=== PATIENT | female | born 1970 | race Caucasian/White ===

== ENCOUNTER 2019-08-22 19:27 | Inpatient (IN) | payer SELFPAY ==
--- NOTE | 2019-08-22 20:01 | Event Note ---
ED Screening Note Date of service: 08/22/19 Time: 20:00 ED Screening Note: 49 yo F, hx diabetes, presents to ED w/ painful, swollen knot on her back x 4 days. Reports fever and nausea. This initial assessment/diagnostic orders/clinical plan/treatment(s) is/are subject to change based on patients health status, clinical progression and re- assessment by fellow clinical providers in the ED. Further treatment and workup at subsequent clinical providers discretion. Patient/guardian urged not to elope from the ED as their condition may be serious if not clinically assessed and managed. Initial orders include: CBC, BMP
[2019-08-22 20:51] LABS: Basophils # (Auto) 0.1 K/mm3 (0.0-0.1); Basophils % (Auto) 0.8 % (0.0-1.8); Eosinophils # (Auto) 0.3 K/mm3 (0.0-0.4); Eosinophils % (Auto) 2.9 % (0.0-4.3); Hematocrit 38.9 % (30.3-42.9); Hemoglobin 13.6 gm/dl (10.1-14.3); Lymphocytes # (Auto) 1.7 K/mm3 (1.2-5.4); Lymphocytes % (Auto) 16.6 % (13.4-35.0); Mean Corpuscular HGB Conc 35 % (30-34); Mean Corpuscular Volume 86 fl (79-97); Monocytes # (Auto) 0.9 K/mm3 (0.0-0.8); Monocytes % (Auto) 8.6 % (0.0-7.3); Platelet Count 249 K/mm3 (140-440); Red Blood Count 4.53 M/mm3 (3.65-5.03); Red Cell Distribution Width 13.1 % (13.2-15.2)
[2019-08-22 21:12] LABS: BUN/Creatinine Ratio 23; Blood Urea Nitrogen 14 mg/dL (7-17); Calcium 9.5 mg/dL (8.4-10.2); Hemolysis Index 5
[2019-08-22] MEDS ORDERED: SODIUM CHLORIDE 0.9% 1000 ML 1,000 ML IV ONE (23:38)
[2019-08-22] MEDS ORDERED: CLINDAMYCIN 600 MG/50 mL 600 MG/50 ML BAG IV ONE (23:38)
[2019-08-22] MEDS ORDERED: MORPHINE 4 MG/1 ML INJ IV ONE (23:38)
[2019-08-22] MEDS ORDERED: ONDANSETRON 4 MG/2 ML INJ IV ONE (23:38)
--- NOTE | 2019-08-23 00:02 | Emergency Department Report ---
- General Chief complaint: Skin/Abscess/Foreign Body Stated complaint: LUMP ON BACK WITH PAIN Time Seen by Provider: 08/22/19 23:26 Source: patient Mode of arrival: Ambulatory Limitations: No Limitations - History of Present Illness Initial comments: Patient is a 49-year-old female presents emergency room with complaints of an abscess of the back that began 4-5 days ago. She has associated subjective fever and nausea. She denies any drainage. She denies any vomiting or diarr hea. She denies getting bit by anything. She has a past medical history of diabetes which she reports was controlled by diet and she has never been on medications. She has an allergy to penicillin. She states that she has had abscesses before which were small and went away on their own and has never had to have an I&D. - Related Data Allergies Allergy/AdvReac Type Severity Reaction Status Date / Time No Known Allergies Allergy Verified 08/23/19 02:58 Abscess Boil HPI - HPI Chief Complaint: Skin/Abscess/Foreign Body Stated Complaint: LUMP ON BACK WITH PAIN Time Seen by Provider: 08/22/19 23:26 Allergies/Adverse Reactions: Allergies Allergy/AdvReac Type Severity Reaction Status Date / Time No Known Allergies Allergy Verified 08/23/19 02:58 ED Review of Systems ROS: Stated complaint: LUMP ON BACK WITH PAIN Other details as noted in HPI Comment: All other systems reviewed and negative ED Past Medical Hx - Past Medical History Previous Medical History?: Yes Hx Diabetes: Yes - Surgical History Past Surgical History?: No - Social History Smoking Status: Never Smoker Substance Use Type: None ED Physical Exam - General Limitations: No Limitations General appearance: alert, in no apparent distress - Head Head exam: Present: atraumatic, normocephalic - Eye Eye exam: Present: normal appearance - ENT ENT exam: Present: mucous membranes moist - Respiratory Respiratory exam: Present: normal lung sounds bilaterally. Absent: respiratory distress, wheezes, rales, rhonchi, stridor, chest wall tenderness, accessory muscle use, decreased breath sounds, prolonged expiratory - Cardiovascular Cardiovascular Exam: Present: regular rate, normal rhythm, normal heart sounds. Absent: systolic murmur, diastolic murmur, rubs, gallop - Neurological Exam Neurological exam: Present: alert, oriented X3 - Psychiatric Psychiatric exam: Present: normal affect, normal mood - Skin Skin exam: Present: warm, dry, other (8 cm by 8 cm area of erythema and induration to the middle of the back, no obvious central fluctuance, no necrosis, no blistering) ED Course Vital Signs 08/22/19 08/23/19 19:49 01:51 Temperature 99 F 98.4 F Pulse Rate 104 H 98 H Respiratory 18 18 Rate Blood Pressure 149/77 152/91 [Right] O2 Sat by Pulse 97 98 Oximetry - Consultations Consultation #1: 08/23/19 01:[address] Patterson, general surgery regarding CT results and patients exam, advised to do the initial I&D and will consult on patient and evaluate patient to see if surgical washout needed given the extensive cellulitis Consultation #2: 08/23/19 02:[address] Nieves, hospitalist who will accept and resume care of patient, will admit to hospital, asked to have nursing staff obtain wound culture - I & D Back Type of Procedure: Complex Site: mid back Blade Size: 11 I & D Procedure: betadine prep, sterile drapes applied, sterile dressing applied Progress: Very difficult I&D to perform, skin is very indurated, difficult to inject lidocaine anesthetic, area prepped with Betadine, 5 mL of 1% lidocaine without epinephrine used as anesthetic, betadine prep again, sterile drapes applied, 2 cm incision made with 11 blade, skin is very indurated, difficult to make incision, small amount of purulent drainage expressed with an odor, irrigated with saline, attempted to probe with blunt forceps, small amount of packing placed, patient tolerated well, bleeding controlled ED Medical Decision Making - Lab Data Result diagrams: 08/23/19 03:03 08/23/19 03:03 Lab Results 08/22/19 08/22/19 08/22/19 Range/Units 20:30 20:30 23:31 WBC 10.4 (4.5-11.0) K/mm3 RBC 4.53 (3.65-5.03) M/mm3 Hgb 13.6 (10.1-14.3) gm/dl Hct 38.9 (30.3-42.9) % MCV 86 (79-97) fl MCH 30 (28-32) pg MCHC 35 H (30-34) % RDW 13.1 L (13.2-15.2) % Plt Count 249 (140-440) K/mm3 Lymph % (Auto) 16.6 (13.4-35.0) % [place] % (Auto) 8.6 H (0.0-7.3) % Eos % (Auto) 2.9 (0.0-4.3) % Baso % (Auto) 0.8 (0.0-1.8) % Lymph # 1.7 (1.2-5.4) K/mm3 [place] # 0.9 H (0.0-0.8) K/mm3 Eos # 0.3 (0.0-0.4) K/mm3 Baso # 0.1 (0.0-0.1) K/mm3 Seg Neutrophils % 71.1 H (40.0-70.0) % Seg Neutrophils # 7.4 (1.8-7.7) K/mm3 VBG pH 7.425 H (7.320-7.420) Sodium 131 L (137-145) mmol/L Potassium 4.6 (3.6-5.0) mmol/L Chloride 88.9 L (98-107) mmol/L Carbon Dioxide 30 (22-30) mmol/L Anion Gap 17 mmol/L BUN 14 (7-17) mg/dL Creatinine 0.6 L (0.7-1.2) mg/dL Estimated GFR > 60 ml/min BUN/Creatinine Ratio 23 % Glucose 420 H (65-100) mg/dL Calcium 9.5 (8.4-10.2) mg/dL - Radiology Data Radiology results: report reviewed CT thoracic spine with contrast INDICATION: large 6 cm by 6 cm area of induration/erythema. TECHNIQUE: Axial imaging performed through the thoracic spine with the use of 100 mL Omnipaque 300 intravenous contrast. Sagittal and coronal reconstructed images were also reviewed. All CT scans at this location are performed using CT dose reduction for ALARA by means of automated exposure control. COMPARISON: None FINDINGS: Alignment: Spinal alignment is normal. Bones: There is no acute osseous abnormality. Mild multilevel discogenic DJD is present. Soft tissues: There is skin induration along the posterior midline and there is a multiloculated subcutaneous collection measuring 2.6 cm in maximal transverse dimension and approximately 4 cm in maximal craniocaudal dimension. There is considerable surrounding inflammatory stranding in the subcutaneous tissues, as well. Otherwise no significant incidental soft tissue findings. The visualized lungs are clear. IMPRESSION: Soft tissue findings as outlined above worrisome for subcutaneous abscess formation. No acute abnormality in the spine itself. Signer Name: Eleazar Mead MD Signed: 08/23/2019 12:38 AM Workstation Name: [id number] Transcribed By: CODEY Dictated By: Eleazar Mead MD Electronically Authenticated By: Eleazar Mead MD Signed Date/Time: 08/23/1937 DD/ TD/TT: - Medical Decision Making Patient is a 49-year-old female presents emergency room with complaints of an abscess of the back that began 4-5 days ago. She has associated subjective fever and nausea. She denies any drainage. She denies any vomiting or diarrhea. She denies getting bit by anything. She has a past medical history of diabetes which she reports was controlled by diet and she has never been on medications. She has an allergy to penicillin. She states that she has had abscesses before which were small and went away on their own and has never had to have an I&D. vitals with mild tachycardia which improved upon repeat. labs with mild dehydration and elevated BG at 420. pt given 1L of NS and blood glucose improved to 302. on exam: 8 cm by 8 cm area of erythema and induration to the middle of the back, no obvious central fluctuance, no necrosis, no blistering. CT thoracic spine with IV contrast: Soft tissue findings as outlined above worrisome for subcutaneous abscess formation. No acute abnormality in the spine itself.spoke with Dr. Patterson, general surgery regarding CT results and patients exam, advised to do the initial I&D and will consult on patient and evaluate patient to see if surgical washout needed given the extensive cellulitis. Incision and drainage performed per procedure note it was very difficult to perform secondary to indurated skin, only small amount of foul odor purulent drainage expressed. pt given pain medication and clindamycin. Patient will be admitted to the hospital service due to extensive cellulitis and medical history of uncontrolled diabetes. - Differential Diagnosis cellulitis, abscess, sebaceous cyst, lipoma Critical care attestation.: If time is entered above; I have spent that time in minutes in the direct care of this critically ill patient, excluding procedure time. ED Disposition Clinical Impression: Abscess Cellulitis Qualifiers: Site of cellulitis: trunk Site of cellulitis of trunk: back Qualified Code(s): L03.312 - Cellulitis of back [any part except buttock] Uncontrolled diabetes mellitus Qualifiers: Diabetes mellitus type: type 2 Glycemic state: with hyperglycemia Qualified Code(s): E11.65 - Type 2 diabetes mellitus with hyperglycemia Disposition: 09 OP ADMIT IP TO THIS HOSP Is pt being admited?: Yes Does the pt Need Aspirin: No Condition: Fair Time of Disposition: 02:38
--- NOTE | 2019-08-23 00:43 | Cat Scan Report ---
CT thoracic spine with contrast INDICATION: large 6 cm by 6 cm area of induration/erythema. TECHNIQUE: Axial imaging performed through the thoracic spine with the use of 100 mL Omnipaque 300 i ntravenous contrast. Sagittal and coronal reconstructed images were also reviewed. All CT scans at this location are performed using CT dose reduction for ALARA by means of automated exposure control. COMPARISON: None FINDINGS: Alignment: Spinal alignment is normal. Bones: There is no acute osseous abnormality. Mild multilevel discogenic DJD is present. Soft tissues: There is skin induration along the posterior midline and there is a multiloculated sub cutaneous collection measuring 2.6 cm in maximal transverse dimension and approximately 4 cm in maxim al craniocaudal dimension. There is considerable surrounding inflammatory stranding in the subcutaneo us tissues, as well. Otherwise no significant incidental soft tissue findings. The visualized lungs a re clear. IMPRESSION: Soft tissue findings as outlined above worrisome for subcutaneous abscess formation. No acute abnormality in the spine itself. Signer Name: Eleazar Mead MD Signed: 08/23/2019 12:38 AM Workstation Name: [id number]
[2019-08-23] MEDS ORDERED: LIDOCAINE (1%) 10 MG/1 ML VIAL 20 ML MDV INFILTRATI ONE (01:18)
[2019-08-23] MEDS ORDERED: ONDANSETRON 4 MG/2 ML INJ IV PRN (02:53)
[2019-08-23] MEDS ORDERED: VANCOMYCIN/NS 1 GM/250 ML 1 GM/250 ML BAG IV ONE (02:57)
--- NOTE | 2019-08-23 02:59 | History and Physical Report ---
History of Present Illness History of present illness: 49-year-old woman with no medical problem comes emergency room because she has had a lump on her back that started 1 month ago. Patient stated the lump is been getting bigger, increased pain, fever and chills. Also complained of increased thirst, frequent urination and weight loss of 12 pounds over the last 3 months, dry mouth and generalized weakness. Patient was found to have a absce ss in the thoracic area, I&D was done, she received 1 dose of clindamycin. Patient is being admitted for new onset diabetes, abscess Review of systems Constitutional: no weight loss Ears, eyes, nose, mouth and throat: no nasal congestion, no nasal discharge, no sinus pressure, no vision change, no red eye. Neck: No neck pain or rigidity. Cardiovascular: no chest pain, palpitations Respiratory: No cough, shortness of breath Gastrointestinal: no abdominal pain hematochezia Genitourinary : no frequency , no hematuria Musculoskeletal: no joint swelling or muscle ache Integumentary: no rash, no pruritis Neurological: no parathesias, no numbness, no focal weakness Endocrine: no cold or heat intolerance, no polyuria or polydipsia Hematologic/Lymphatic: no easy bruising, no easy bleeding, no gland swelling Allergic/Immunologic: no urticaria, no angioedema. PAST MEDICAL HISTORY: None PAST SURGICAL HISTORY: None SOCIAL HISTORY: No alcohol, no drugs, tobacco Y HISTORY: Hypertension Medications and Allergies Allergies Allergy/AdvReac Type Severity Reaction Status Date / Time No Known Allergies Allergy Verified 08/23/19 02:58 Active Meds: Active Medications Acetaminophen (Tylenol) 650 mg PO Q4H PRN PRN Reason: Pain MILD(1-3)/Fever >100.5/FUNES Enoxaparin Sodium (Enoxaparin) 30 mg SUB-Q QDAY LATA Sodium Chloride (Nacl 0.9% 1000 Ml) 1,000 mls @ 150 mls/hr IV DIRECT LATA Vancomycin HCl (Vancomycin/Ns 1 Gm/250 Ml) 1 gm in 250 mls @ 167.007 mls/hr IV ONCE ONE; Protocol Stop: 08/23/19 04:26 Piperacillin Sod/Tazobactam Sod (Zosyn/Ns 4.5gm/100ml) 4.5 gm in 100 mls @ 200 mls/hr IV Q8HR LATA; Protocol Morphine Sulfate (Morphine) 2 mg IV Q4H PRN PRN Reason: Pain, Moderate (4-6) Ondansetron HCl (Zofran) 4 mg IV Q8H PRN PRN Reason: Nausea And Vomiting Sodium Chloride (Sodium Chloride Flush Syringe 10 Ml) 10 ml IV BID LATA Sodium Chloride (Sodium Chloride Flush Syringe 10 Ml) 10 ml IV PRN PRN PRN Reason: LINE FLUSH Exam - Physical Exam Narrative exam: Gen. appearance: Patient lying in bed, no apparent distress HEENT: Normocephalic, atraumatic, pupils equally round and reactive to light, eyes are , extraocular movement intact, and no sclericterus,. No JVD or thyromegaly or nodule,neck supple, no carotid bruit ,mucous membranes moist, no exudate or erythema Heart: S1, S2, regular rate and rhythm Lungs: Clear bilaterally, breathing comfortable Abdomen: Positive bowel sounds, non-tender, nondistended, no organomegaly Extremity:no edema cyanosis, clubbing Back: Abscess measuring probably 6 cm, positive erythema, indurated, tender to touch Skin: no rash, dry, warm Neuro: Cranial nerves 2-12 intact, motor and sensory intact - Constitutional Vitals: Temp Pulse Resp BP Pulse Ox 98.4 F 98 H 18 152/91 98 08/23/19 01:51 08/23/19 01:51 08/23/19 01:51 08/23/19 01:51 08/23/19 01:51 Results - Labs CBC & Chem 7: 08/23/19 03:03 08/23/19 03:03 Labs: Abnormal lab results 08/22/19 08/22/19 08/22/19 Range/Units 20:30 20:30 23:31 MCHC 35 H (30-34) % RDW 13.1 L (13.2-15.2) % [place] % (Auto) 8.6 H (0.0-7.3) % [place] # 0.9 H (0.0-0.8) K/mm3 Seg Neutrophils % 71.1 H (40.0-70.0) % VBG pH 7.425 H (7.320-7.420) Sodium 131 L (137-145) mmol/L Chloride 88.9 L (98-107) mmol/L Creatinine 0.6 L (0.7-1.2) mg/dL Glucose 420 H (65-100) mg/dL POC Glucose (70-105) 08/23/19 Range/Units 01:58 MCHC (30-34) % RDW (13.2-15.2) % [place] % (Auto) (0.0-7.3) % [place] # (0.0-0.8) K/mm3 Seg Neutrophils % (40.0-70.0) % VBG pH (7.320-7.420) Sodium (137-145) mmol/L Chloride (98-107) mmol/L Creatinine (0.7-1.2) mg/dL Glucose (65-100) mg/dL POC Glucose 302 H (70-105) Assessment and Plan CT thoracic spine reviewed Assessment Thoracic abscess Start vancomycin, Zosyn obtain blood culture, wound culture Surgery was consulted to see the patient Start IV morphine New onset diabetes Start IV fluid, check fingersticks, start insulin Dietary consult, check hemoglobin A1c DVT prophylax
[2019-08-23] MEDS ORDERED: VANCOMYCIN 1,250 MG in SODIUM CHLORIDE 0.9% 250ML 250 ML IV ONE (03:15)
[2019-08-23] MEDS ORDERED: DEXTROSE 50% IN WATER (25GM) 50 ML SYRINGE IV PRN (03:34)
[2019-08-23 03:38] LABS: Basophils # (Auto) 0.1 K/mm3 (0.0-0.1); Eosinophils # (Auto) 0.3 K/mm3 (0.0-0.4); Eosinophils % (Auto) 3.5 % (0.0-4.3); Hematocrit 39.9 % (30.3-42.9); Hemoglobin 13.9 gm/dl (10.1-14.3); Lymphocytes # (Auto) 1.7 K/mm3 (1.2-5.4); Mean Corpuscular HGB Conc 35 % (30-34); Mean Corpuscular Volume 87 fl (79-97); Monocytes # (Auto) 0.7 K/mm3 (0.0-0.8); Monocytes % (Auto) 7.1 % (0.0-7.3); Platelet Count 252 K/mm3 (140-440); Red Blood Count 4.61 M/mm3 (3.65-5.03); Red Cell Distribution Width 13.2 % (13.2-15.2)
[2019-08-23] MEDS ORDERED: SODIUM CHLORIDE 0.9% 1000 ML 1,000 ML IV SCH (03:45)
[2019-08-23 03:57] LABS: BUN/Creatinine Ratio 22; Blood Urea Nitrogen 11 mg/dL (7-17); Hemolysis Index 6
[2019-08-23] MEDS: SODIUM CHLORIDE 0.9% 1000 ML 1,000 ML IV SCH ×3 (08:15→22:24)
[2019-08-23] MEDS: PIPERACIL/TAZOBACTA 4.5/NS 100 4.5 GM/100 ML VIAL IV SCH ×3 (08:15→22:31)
[2019-08-23] MEDS: INSULIN LISPRO 100 UNIT/ML SUB-Q SCH ×4 (09:04→23:21)
[2019-08-23] MEDS ORDERED: ENOXAPARIN 30 MG/0.3 ML INJ SUB-Q SCH (10:00)
[2019-08-23] MEDS ORDERED: ENOXAPARIN 40 MG/0.4 ML INJ SUB-Q SCH (10:00)
--- NOTE | 2019-08-23 11:19 | Progress Note ---
Hospitalist Physical - Constitutional Vitals: Temp Pulse Resp BP Pulse Ox 98.4 F 98 H 18 152/91 94 08/23/19 01:51 08/23/19 01:51 08/23/19 01:51 08/23/19 01:51 08/23/19 08:37 Results - Labs CBC & Chem 7: 08/23/19 03:03 08/23/19 03:03 Labs: Laboratory Last Values WBC 9.5 K/mm3 (4.5-11.0) 08/23/19 03:03 RBC 4.61 M/mm3 (3.65-5.03) 08/23/19 03:03 Hgb 13.9 gm/dl (10.1-14.3) 08/23/19 03:03 Hct 39.9 % (30.3-42.9) 08/23/19 03:03 MCV 87 fl (79-97) 08/23/19 03:03 MCH 30 pg (28-32) 08/23/19 03:03 MCHC 35 % (30-34) H 08/23/19 03:03 RDW 13.2 % (13.2-15.2) 08/23/19 03:03 Plt Count 252 K/mm3 (140-440) 08/23/19 03:03 Lymph % (Auto) 18.0 % (13.4-35.0) 08/23/19 03:03 [place] % (Auto) 7.1 % (0.0-7.3) 08/23/19 03:03 Eos % (Auto) 3.5 % (0.0-4.3) 08/23/19 03:03 Baso % (Auto) 1.0 % (0.0-1.8) 08/23/19 03:03 Lymph # 1.7 K/mm3 (1.2-5.4) 08/23/19 03:03 [place] # 0.7 K/mm3 (0.0-0.8) 08/23/19 03:03 Eos # 0.3 K/mm3 (0.0-0.4) 08/23/19 03:03 Baso # 0.1 K/mm3 (0.0-0.1) 08/23/19 03:03 Seg Neutrophils % 70.4 % (40.0-70.0) H 08/23/19 03:03 Seg Neutrophils # 6.7 K/mm3 (1.8-7.7) 08/23/19 03:03 VBG pH 7.425 (7.320-7.420) H 08/22/19 23:31 Sodium 132 mmol/L (137-145) L 08/23/19 03:03 Potassium 4.5 mmol/L (3.6-5.0) 08/23/19 03:03 Chloride 90.5 mmol/L (98-107) L 08/23/19 03:03 Carbon Dioxide 29 mmol/L (22-30) 08/23/19 03:03 Anion Gap 17 mmol/L 08/23/19 03:03 BUN 11 mg/dL (7-17) 08/23/19 03:03 Creatinine 0.5 mg/dL (0.7-1.2) L 08/23/19 03:03 Estimated GFR > 60 ml/min 08/23/19 03:03 BUN/Creatinine Ratio 22 % 08/23/19 03:03 Glucose 343 mg/dL (65-100) H 08/23/19 03:03 POC Glucose 318 (70-105) H 08/23/19 09:03 Hemoglobin A1c 11.9 % (4-6) H 08/23/19 03:03 Calcium 9.0 mg/dL (8.4-10.2) 08/23/19 03:03 Active Medications - Current Medications Current Medications: Generic Name Dose Route Start Last Admin Trade Name Freq PRN Reason Stop Dose Admin Acetaminophen 650 mg 08/23/19 02:53 Tylenol PO Q4H PRN Pain MILD(1-3)/Fever >100.5/FUNES Dextrose 50 ml 08/23/19 03:34 D50w (25gm) Syringe IV Q30MIN PRN Hypoglycemia Protocol Enoxaparin Sodium 40 mg 08/23/19 10:00 08/23/19 09:44 Enoxaparin SUB-Q 40 mg QDAY@1000 LATA Administration Sodium Chloride 1,000 mls @ 150 mls/hr 08/23/19 03:00 08/23/19 08:15 Nacl 0.9% 1000 Ml IV 150 mls/hr DIRECT LATA Administration Piperacillin Sod/Tazobactam Sod 4.5 gm in 100 mls @ 200 mls/hr 08/23/19 06:00 08/23/19 08:15 Zosyn/Ns 4.5gm/100ml IV 200 mls/hr Q8HR LATA Administration Protocol Insulin Human Lispro 0 unit 08/23/19 06:00 08/23/19 09:04 Humalog SUB-Q 8 unit Q6HR LATA Administration Protocol Morphine Sulfate 2 mg 08/23/19 02:53 Morphine IV Q4H PRN Pain, Moderate (4-6) Ondansetron HCl 4 mg 08/23/19 02:53 Zofran IV Q8H PRN Nausea And Vomiting Sodium Chloride 10 ml 08/23/19 10:00 08/23/19 09:44 Sodium Chloride Flush Syringe 10 Ml IV 10 ml BID LATA Administration Sodium Chloride 10 ml 08/23/19 02:53 Sodium Chloride Flush Syringe 10 Ml IV PRN PRN LINE FLUSH Nutrition/Malnutrition Assess - Dietary Evaluation Nutrition/Malnutrition Findings: Nutrition Notes Start: 08/23/19 08:40 Freq: Status: Active Protocol: Document 08/23/19 08:40 ROZ (Rec: 08/23/19 10:31 ROZ [id number]) Co-Sign 08/23/19 08:40 LP Nutrition Notes Need for Assessment generated from: MD Order Initial or Follow up Assessment Current Diagnosis Diabetes Current Diet Consistent CHO Labs/Tests BG 343 Hgb A1C 11.9 Pertinent Medications Reviewed Height 5 ft 3 in Weight 86.183 kg [place] Body Weight (kg) 52.27 BMI 33.6 Weight change and time frame 9.8% wt change in 2 years Weight Status Obese Subjective/Other Information MD consult for diet education. Pt stated she's had some wt loss. [employer] WORK[employer] pt ate all 3 meals a day. Pt stated her appetite is getting better. Pt ate 100% of breakfast. Educated pt on a DM diet. Pt had a family member translate. Provided belgian handout Burn Absent Trauma Absent GI Symptoms None Current % PO Good (75-100%) Minimum of two criteria No physical signs of malnutrition #1 Nutrition Diagnosis Food and nutrition-related knowledge deficit Etiology Lack of DM education [employer] WORK[employer] As Evidenced by Signs and Symptoms BG 343, Hgb A1C 11.9, new onset diabetes Is patient on ventilator? No Is Patient Ambulatory and/or Out of Bed Yes REE-([place]-ambulatory/OOB) [ 2889.388 NUTR.[id number]] Kcal/Kg value to use for calculation 17 Approximate Energy Requirements Using 1465 kcal/Kg Calculation Used for Recommendations Kcal/kg Additional Notes Protein: 55-69g (0.8-1g/kg AdjBW 69kg) Fluid: 1 ml/kcal Nutrition Intervention Change Diet Order: Continue current Teaching Recipient Patient,Family Learning Readiness Fair Teaching Methods Discussion,Handout Response to Teaching Reinforcement needed Education Handouts Provided Tajik MNT for DM Barriers to Learning Language RD phone number provided Yes Patient aware of follow up options Yes Goal #1 Follow a consistent CHO diet Goal #2 Meet at least 75% of energy and protein needs via PO intakes Anticipated Discharge Needs: Consistent CHO diet Follow-Up By: 08/27/19 Additional Comments F/U further edu. and stable PO intakes
--- NOTE | 2019-08-23 13:19 | Progress Note ---
Assessment and Plan Assessment and plan: Patient is a 49-year-old woman with no medical problem comes emergency room because she has had a lump on her back that started 1 month ago. Patient stated the lump is been getting bigger, increased pain, fever and chills. Also complained of increased thirst, frequent urination and weight loss of 12 pounds over the last 3 months, dry mouth and generalized weakness. Patient was found to have a abscess in the thoracic area, I&D was done, she received 1 dose of clindamycin. Patient is being admitted for new onset diabetes, abscess * CT Thoracic spine with IV contrast: Soft tissue findings as outlined in report, worrisome for subcutatneous abscess Thoracic abscess Start vancomycin, Zosyn obtain blood culture, wound culture Surgery was consulted Start IV morphine New onset diabetes mellitus type 2 continue IV fluid, check fingersticks, start insulin Dietary consult, checked hemoglobin A1c 11.9, start 70/30 DVT prophylaxis change to sq heparin History Interval history: Patient was seen and examined. Follow-up on current diagnosis Thoracic back abscess. Overnight uneventful as no events directly reported to me. Patient denies any chest pain, shortness breath, nausea/vomiting or severe headaches. Imaging, nursing note, chart, labs and old chart reviewed. Discussed with patient. Sister in law at bedside used as Proof Reader. Hospitalist Physical - Physical exam Narrative exam: Gen: WDWN, NAD, Awake, Alert, Orientated x 3 HEENT: NCAT, EOMI, PERRL, OP Clear Neck: supple, no adenopathy, no thyromegaly, no JVD CVS/Heart: RRR, normal S1S2, pulses present bilaterally Chest/Lungs: CTA B, Symmetrical chest expansion, good air entry bilaterally GI/Abdomen: soft, NTND, good bowel sounds, no guarding or rebound /Bladder: no suprapubic tenderness, no CVA, NO paraspinal tenderness Extermity/Skin: large thoracic abscess with vertical surgical cut draining dark blood, tender also, above that area is another half dollar size cystic like lesion MSK: FROM x 4 Neuro: CN 2-12 grossly intact, no new focal deficits Psych: calm - Constitutional Vitals: Temp Pulse Resp BP Pulse Ox 98.4 F 98 H 18 152/91 94 08/23/19 01:51 08/23/19 01:51 08/23/19 01:51 08/23/19 01:51 08/23/19 08:37 Results - Labs CBC & Chem 7: 08/23/19 03:03 08/23/19 03:03 Labs: Laboratory Last Values WBC 9.5 K/mm3 (4.5-11.0) 08/23/19 03:03 RBC 4.61 M/mm3 (3.65-5.03) 08/23/19 03:03 Hgb 13.9 gm/dl (10.1-14.3) 08/23/19 03:03 Hct 39.9 % (30.3-42.9) 08/23/19 03:03 MCV 87 fl (79-97) 08/23/19 03:03 MCH 30 pg (28-32) 08/23/19 03:03 MCHC 35 % (30-34) H 08/23/19 03:03 RDW 13.2 % (13.2-15.2) 08/23/19 03:03 Plt Count 252 K/mm3 (140-440) 08/23/19 03:03 Lymph % (Auto) 18.0 % (13.4-35.0) 08/23/19 03:03 [place] % (Auto) 7.1 % (0.0-7.3) 08/23/19 03:03 Eos % (Auto) 3.5 % (0.0-4.3) 08/23/19 03:03 Baso % (Auto) 1.0 % (0.0-1.8) 08/23/19 03:03 Lymph # 1.7 K/mm3 (1.2-5.4) 08/23/19 03:03 [place] # 0.7 K/mm3 (0.0-0.8) 08/23/19 03:03 Eos # 0.3 K/mm3 (0.0-0.4) 08/23/19 03:03 Baso # 0.1 K/mm3 (0.0-0.1) 08/23/19 03:03 Seg Neutrophils % 70.4 % (40.0-70.0) H 08/23/19 03:03 Seg Neutrophils # 6.7 K/mm3 (1.8-7.7) 08/23/19 03:03 VBG pH 7.425 (7.320-7.420) H 08/22/19 23:31 Sodium 132 mmol/L (137-145) L 08/23/19 03:03 Potassium 4.5 mmol/L (3.6-5.0) 08/23/19 03:03 Chloride 90.5 mmol/L (98-107) L 08/23/19 03:03 Carbon Dioxide 29 mmol/L (22-30) 08/23/19 03:03 Anion Gap 17 mmol/L 08/23/19 03:03 BUN 11 mg/dL (7-17) 08/23/19 03:03 Creatinine 0.5 mg/dL (0.7-1.2) L 08/23/19 03:03 Estimated GFR > 60 ml/min 08/23/19 03:03 BUN/Creatinine Ratio 22 % 08/23/19 03:03 Glucose 343 mg/dL (65-100) H 08/23/19 03:03 POC Glucose 337 (70-105) H 08/23/19 11:48 Hemoglobin A1c 11.9 % (4-6) H 08/23/19 03:03 Calcium 9.0 mg/dL (8.4-10.2) 08/23/19 03:03 Active Medications - Current Medications Current Medications: Generic Name Dose Route Start Last Admin Trade Name Freq PRN Reason Stop Dose Admin Acetaminophen 650 mg 08/23/19 02:53 Tylenol PO Q4H PRN Pain MILD(1-3)/Fever >100.5/FUNES Dextrose 50 ml 08/23/19 03:34 D50w (25gm) Syringe IV Q30MIN PRN Hypoglycemia Protocol Enoxaparin Sodium 40 mg 08/23/19 10:00 08/23/19 09:44 Enoxaparin SUB-Q 40 mg QDAY@1000 LATA Administration Sodium Chloride 1,000 mls @ 150 mls/hr 08/23/19 03:00 08/23/19 08:15 Nacl 0.9% 1000 Ml IV 150 mls/hr DIRECT LATA Administration Piperacillin Sod/Tazobactam Sod 4.5 gm in 100 mls @ 200 mls/hr 08/23/19 06:00 08/23/19 08:15 Zosyn/Ns 4.5gm/100ml IV 200 mls/hr Q8HR LATA Administration Protocol Insulin Human Lispro 0 unit 08/23/19 06:00 08/23/19 12:34 Humalog SUB-Q 8 unit Q6HR LATA Administration Protocol Morphine Sulfate 2 mg 08/23/19 02:53 Morphine IV Q4H PRN Pain, Moderate (4-6) Ondansetron HCl 4 mg 08/23/19 02:53 Zofran IV Q8H PRN Nausea And Vomiting Sodium Chloride 10 ml 08/23/19 10:00 08/23/19 09:44 Sodium Chloride Flush Syringe 10 Ml IV 10 ml BID LATA Administration Sodium Chloride 10 ml 08/23/19 02:53 Sodium Chloride Flush Syringe 10 Ml IV PRN PRN LINE FLUSH Nutrition/Malnutrition Assess - Dietary Evaluation Nutrition/Malnutrition Findings: Nutrition Notes Start: 08/23/19 08:40 Freq: Status: Active Protocol: Document 08/23/19 08:40 ROZ (Rec: 08/23/19 10:31 ROZ [id number]) Co-Sign 08/23/19 08:40 LP Nutrition Notes Need for Assessment generated from: MD Order Initial or Follow up Assessment Current Diagnosis Diabetes Current Diet Consistent CHO Labs/Tests BG 343 Hgb A1C 11.9 Pertinent Medications Reviewed Height 5 ft 3 in Weight 86.183 kg [place] Body Weight (kg) 52.27 BMI 33.6 Weight change and time frame 9.8% wt change in 2 years Weight Status Obese Subjective/Other Information MD consult for diet education. Pt stated she's had some wt loss. SCANNING COORDINATOR pt ate all 3 meals a day. Pt stated her appetite is getting better. Pt ate 100% of breakfast. Educated pt on a DM diet. Pt had a family member translate. Provided omani handout Burn Absent Trauma Absent GI Symptoms None Current % PO Good (75-100%) Minimum of two criteria No physical signs of malnutrition #1 Nutrition Diagnosis Food and nutrition-related knowledge deficit Etiology Lack of DM education SCANNING COORDINATOR As Evidenced by Signs and Symptoms BG 343, Hgb A1C 11.9, new onset diabetes Is patient on ventilator? No Is Patient Ambulatory and/or Out of Bed Yes REE-([facility] [place]-ambulatory/OOB) [ 3889.748 NUTR.[id number]] Kcal/Kg value to use for calculation 17 Approximate Energy Requirements Using 1465 kcal/Kg Calculation Used for Recommendations Kcal/kg Additional Notes Protein: 55-69g (0.8-1g/kg AdjBW 69kg) Fluid: 1 ml/kcal Nutrition Intervention Change Diet Order: Continue current Teaching Recipient Patient,Family Learning Readiness Fair Teaching Methods Discussion,Handout Response to Teaching Reinforcement needed Education Handouts Provided Salvadorean MNT for DM Barriers to Learning Language RD phone number provided Yes Patient aware of follow up options Yes Goal #1 Follow a consistent CHO diet Goal #2 Meet at least 75% of energy and protein needs via PO intakes Anticipated Discharge Needs: Consistent CHO diet Follow-Up By: 08/27/19 Additional Comments F/U further edu. and stable PO intakes
--- NOTE | 2019-08-23 14:36 | Consultation ---
History of Present Illness Consult date: 08/23/19 Reason for consult: other (back abscess) Requesting physician: DELIA LEAHY Chief complaint: back pain - History of present illness History of present illness: Patient is a 49-year-old female presents emergency room with complaints of an abscess of the back that began 4-5 days ago. She has associated subjective fever and nausea. She denies any drainage. She denies any vomiting or diarrhea. Since the I&D last night, she is feeling much better. Past History Past Medical History: diabetes Past Surgical History: No surgical history Social history: denies: smoking, alcohol abuse Family history: denies: no significant family history Medications and Allergies Allergies Allergy/AdvReac Type Severity Reaction Status Date / Time No Known Allergies Allergy Verified 08/23/19 02:58 Active Meds: Active Medications Acetaminophen (Tylenol) 650 mg PO Q4H PRN PRN Reason: Pain MILD(1-3)/Fever >100.5/FUNES Dextrose (D50w (25gm) Syringe) 50 ml IV Q30MIN PRN; Protocol PRN Reason: Hypoglycemia Heparin Sodium (Porcine) (Heparin) 5,000 unit SUB-Q Q12HR LATA Sodium Chloride (Nacl 0.9% 1000 Ml) 1,000 mls @ 150 mls/hr IV DIRECT LATA Last Admin: 08/23/19 08:15 Dose: 150 mls/hr Documented by: Piperacillin Sod/Tazobactam Sod (Zosyn/Ns 4.5gm/100ml) 4.5 gm in 100 mls @ 200 mls/hr IV Q8HR LATA; Protocol Last Admin: 08/23/19 08:15 Dose: 200 mls/hr Documented by: Insulin Human Isoph/Insulin Regular (Humulin 70/30) 10 unit SUB-Q BIDDIAB LATA Insulin Human Lispro (Humalog) 0 unit SUB-Q Q6HR LATA; Protocol Last Admin: 08/23/19 12:34 Dose: 8 unit Documented by: Morphine Sulfate (Morphine) 2 mg IV Q4H PRN PRN Reason: Pain, Moderate (4-6) Ondansetron HCl (Zofran) 4 mg IV Q8H PRN PRN Reason: Nausea And Vomiting Sodium Chloride (Sodium Chloride Flush Syringe 10 Ml) 10 ml IV BID LATA Last Admin: 02/01/20 09:44 Dose: 10 ml Documented by: Sodium Chloride (Sodium Chloride Flush Syringe 10 Ml) 10 ml IV PRN PRN PRN Reason: LINE FLUSH Review of Systems - Constitutional fever, chills, no chronic pain - Cardiovascular no chest pain - Gastrointestinal no abdominal pain, no nausea, no vomiting - Muskuloskeletal other (upper back pain) - Integumentary redness, boils, darkening of skin Exam Vital Signs Temp Pulse Resp BP Pulse Ox 99 F 104 H 18 149/77 97 08/22/19 19:49 08/22/19 19:49 08/22/19 19:49 08/22/19 19:49 08/22/19 19:49 - General physical appearance Positive: well developed, well nourished, no distress, no pain, other (tunisian speaking female in NAD) - Eyes Positive: normal occular movement - Respiratory Positive: normal expansion, normal respiratory effort - Integumentary other (5cm area of erythema with a vertical incision in the middle. No active drainage. +induration) - Neurologic Neurologic: alert and oriented to time, place and person, motor strength and sensation are grossly intact - Psychiatric Psychiatric: appropriate mood/affect, intact judgment & insight, cooperative Results - Labs 08/23/19 03:03 08/23/19 03:03 Abnormal lab results 08/22/19 08/22/19 08/22/19 Range/Units 20:30 20:30 23:31 MCHC 35 H (30-34) % RDW 13.1 L (13.2-15.2) % [place] % (Auto) 8.6 H (0.0-7.3) % [place] # 0.9 H (0.0-0.8) K/mm3 Seg Neutrophils % 71.1 H (40.0-70.0) % VBG pH 7.425 H (7.320-7.420) Sodium 131 L (137-145) mmol/L Chloride 88.9 L (98-107) mmol/L Creatinine 0.6 L (0.7-1.2) mg/dL Glucose 420 H (65-100) mg/dL POC Glucose (70-105) Hemoglobin A1c (4-6) % 08/23/19 08/23/19 08/23/19 Range/Units 01:58 03:03 03:03 MCHC 35 H (30-34) % RDW (13.2-15.2) % [place] % (Auto) (0.0-7.3) % [place] # (0.0-0.8) K/mm3 Seg Neutrophils % 70.4 H (40.0-70.0) % VBG pH (7.320-7.420) Sodium 132 L (137-145) mmol/L Chloride 90.5 L (98-107) mmol/L Creatinine 0.5 L (0.7-1.2) mg/dL Glucose 343 H (65-100) mg/dL POC Glucose 302 H (70-105) Hemoglobin A1c (4-6) % 08/23/19 08/23/19 08/23/19 Range/Units 03:03 09:03 11:48 MCHC (30-34) % RDW (13.2-15.2) % [place] % (Auto) (0.0-7.3) % [place] # (0.0-0.8) K/mm3 Seg Neutrophils % (40.0-70.0) % VBG pH (7.320-7.420) Sodium (137-145) mmol/L Chloride (98-107) mmol/L Creatinine (0.7-1.2) mg/dL Glucose (65-100) mg/dL POC Glucose 318 H 337 H (70-105) Hemoglobin A1c 11.9 H (4-6) % Diabetes panel 08/22/19 08/23/19 08/23/19 Range/Units 20:30 03:03 03:03 Sodium 131 L 132 L (137-145) mmol/L Potassium 4.6 4.5 (3.6-5.0) mmol/L Chloride 88.9 L 90.5 L (98-107) mmol/L Carbon Dioxide 30 29 (22-30) mmol/L BUN 14 11 (7-17) mg/dL Creatinine 0.6 L 0.5 L (0.7-1.2) mg/dL Glucose 420 H 343 H (65-100) mg/dL Hemoglobin A1c 11.9 H (4-6) % Calcium 9.5 9.0 (8.4-10.2) mg/dL Calcium panel 08/22/19 08/23/19 Range/Units 20:30 03:03 Calcium 9.5 9.0 (8.4-10.2) mg/dL Pituitary panel 08/22/19 08/23/19 Range/Units 20:30 03:03 Sodium 131 L 132 L (137-145) mmol/L Potassium 4.6 4.5 (3.6-5.0) mmol/L Chloride 88.9 L 90.5 L (98-107) mmol/L Carbon Dioxide 30 29 (22-30) mmol/L BUN 14 11 (7-17) mg/dL Creatinine 0.6 L 0.5 L (0.7-1.2) mg/dL Glucose 420 H 343 H (65-100) mg/dL Calcium 9.5 9.0 (8.4-10.2) mg/dL Adrenal panel 08/22/19 08/23/19 Range/Units 20:30 03:03 Sodium 131 L 132 L (137-145) mmol/L Potassium 4.6 4.5 (3.6-5.0) mmol/L Chloride 88.9 L 90.5 L (98-107) mmol/L Carbon Dioxide 30 29 (22-30) mmol/L BUN 14 11 (7-17) mg/dL Creatinine 0.6 L 0.5 L (0.7-1.2) mg/dL Glucose 420 H 343 H (65-100) mg/dL Calcium 9.5 9.0 (8.4-10.2) mg/dL - Imaging CT scan - chest: report reviewed, image reviewed Assessment and Plan - Patient Problems (1) Abscess Current Visit: Yes Status: Acute Plan to address problem: Pt stable. Patient actually had relatively small abscess cavity. Most of the abnormality was cellulitis. There is no active drainage at this time. Patient is clinically better. White count is normal. At this point I would like to continue with antibiotics. Tomorrow, hopefully when more swelling has resolved, I will probe the wound to see if there is any residual material. At that time, I will determine if further procedures are needed. Everything was discussed with patient via phone occ therapist. Please call with questions. Time=30min
[2019-08-23] MEDS: INSULIN NPH/REGULAR 70/30 INJ SUB-Q SCH (17:12)
[2019-08-23] MEDS: MORPHINE 2 MG/1 ML INJ IV PRN (22:29)
[2019-08-24] MEDS: MORPHINE 2 MG/1 ML INJ IV PRN ×4 (04:15→21:52)
[2019-08-24] MEDS: PIPERACIL/TAZOBACTA 4.5/NS 100 4.5 GM/100 ML VIAL IV SCH ×3 (06:00→21:38)
[2019-08-24] MEDS: INSULIN LISPRO 100 UNIT/ML SUB-Q SCH ×3 (06:00→17:48)
[2019-08-24] MEDS: SODIUM CHLORIDE 0.9% 1000 ML 1,000 ML IV SCH ×2 (06:03→14:07)
[2019-08-24] MEDS: INSULIN NPH/REGULAR 70/30 INJ SUB-Q SCH ×2 (08:49→17:50)
[2019-08-24] MEDS ORDERED: LIDOCAINE (1%) 10 MG/1 ML VIAL 20 ML MDV INFILTRATI ONE (11:00)
--- NOTE | 2019-08-24 12:17 | Progress Note ---
Assessment and Plan - Patient Problems (1) Abscess Current Visit: Yes Status: Acute Plan to address problem: Pt stable. Plan to probe the wound today to check for complete clearing vs need for additional opening. Procedure, risks, benefits discussed. Verbal consent obtained. Everything was discussed with patient via family member (official foreign language interpreter line not working) Please call with questions. Time=10min Subjective Date of service: 08/24/19 Patient Reports: Positive: still having pain (throbbing sensation) Objective Vital Signs - 12hr 08/24/19 05:24 Temperature 98.6 F Pulse Rate 91 H Respiratory 20 Rate Blood Pressure 115/58 O2 Sat by Pulse 96 Oximetry - General physical appearance no distress, no pain, other (pleasant. Does not appear ill) - Respiratory normal expansion, normal respiratory effort - Integumentary other (slight improvement in erythema. +induration and tenderness. No drainage.) - Psychiatric oriented to time, oriented to person, oriented to place, speech is normal, memory intact - Labs 08/23/19 03:03 08/23/19 03:03
--- NOTE | 2019-08-24 12:17 | Procedure Note ---
Date of procedure: 08/24/19 Pre-op diagnosis: back skin abscess Post-op diagnosis: same Procedure: wound exploration and I&D Timeout was called. Family was in the room to aid with interpretation as the phone line was not working. Wound was probed with CTA. Small opening was identified in the long vertical incision. With the aid of the CTA, I was able to determine the extent of the cavity. Cavity was in the subcutaneous tissue level. Over the CTA I opened up the cavity further. Moderate amount of pus drained. Cultures were taken. Wound was thoroughly irrigated. Wound was packed with quarter inch packing tape. Dressings were placed. Patient tolerated the procedure well. There were no complications. Findings: moderate amount of purulent material Anesthesia: none Surgeon: ROMINA NORMAN Estimated blood loss: minimal Pathology: list (cultures) Specimen disposition: to lab Condition: stable Disposition: floor
--- NOTE | 2019-08-24 16:39 | Progress Note ---
Assessment and Plan Assessment and plan: Patient is a 49-year-old woman with no medical problem comes emergency room because she has had a lump on her back that started 1 month ago. Patient stated the lump is been getting bigger, increased pain, fever and chills. Also complained of increased thirst, frequent urination and weight loss of 12 pounds over the last 3 months, dry mouth and generalized weakness. Patient was found to have a abscess in the thoracic area, I&D was done, she received 1 dose of clindamycin. Patient is being admitted for new onset diabetes, abscess * CT Thoracic spine with IV contrast: Soft tissue findings as outlined in report, worrisome for subcutatneous abscess Thoracic abscess s/p bedside debribement today,this is second debridement, as she had I-n-D done in ED follow wound cultures Start vancomycin, Zosyn obtain blood culture, wound culture Surgery was consulted Start IV morphine New onset diabetes mellitus type 2 continue IV fluid, check fingersticks, start insulin Dietary consult, checked hemoglobin A1c 11.9, start 70/30 DVT prophylaxis change to sq heparin History Interval history: Patient was seen and examined. Follow-up on current diagnosis Thoracic back abscess. Overnight uneventful as no events directly reported to me. Patient denies any chest pain, shortness breath, nausea/vomiting or severe headaches. Imaging, nursing note, chart, labs and old chart reviewed. Discussed with patient. Sister in law at bedside used as Lever Tender. Hospitalist Physical - Physical exam Narrative exam: Gen: WDWN, NAD, Awake, Alert, Orientated x 3 HEENT: NCAT, EOMI, PERRL, OP Clear Neck: supple, no adenopathy, no thyromegaly, no JVD CVS/Heart: RRR, normal S1S2, pulses present bilaterally Chest/Lungs: CTA B, Symmetrical chest expansion, good air entry bilaterally GI/Abdomen: soft, NTND, good bowel sounds, no guarding or rebound /Bladder: no suprapubic tenderness, no CVA, NO paraspinal tenderness Extermity/Skin: large thoracic abscess with vertical surgical cut draining dark blood, tender also, above that area is another half dollar size cystic like lesion MSK: FROM x 4 Neuro: CN 2-12 grossly intact, no new focal deficits Psych: calm - Constitutional Vitals: Temp Pulse Resp BP Pulse Ox 98.8 F 86 16 127/55 96 08/24/19 11:04 08/24/19 11:04 08/24/19 11:04 08/24/19 11:04 08/24/19 11:04 Results - Labs CBC & Chem 7: 08/23/19 03:03 08/23/19 03:03 Labs: Laboratory Last Values WBC 9.5 K/mm3 (4.5-11.0) 08/23/19 03:03 RBC 4.61 M/mm3 (3.65-5.03) 08/23/19 03:03 Hgb 13.9 gm/dl (10.1-14.3) 08/23/19 03:03 Hct 39.9 % (30.3-42.9) 08/23/19 03:03 MCV 87 fl (79-97) 08/23/19 03:03 MCH 30 pg (28-32) 08/23/19 03:03 MCHC 35 % (30-34) H 08/23/19 03:03 RDW 13.2 % (13.2-15.2) 08/23/19 03:03 Plt Count 252 K/mm3 (140-440) 08/23/19 03:03 Lymph % (Auto) 18.0 % (13.4-35.0) 08/23/19 03:03 [place] % (Auto) 7.1 % (0.0-7.3) 08/23/19 03:03 Eos % (Auto) 3.5 % (0.0-4.3) 08/23/19 03:03 Baso % (Auto) 1.0 % (0.0-1.8) 08/23/19 03:03 Lymph # 1.7 K/mm3 (1.2-5.4) 08/23/19 03:03 [place] # 0.7 K/mm3 (0.0-0.8) 08/23/19 03:03 Eos # 0.3 K/mm3 (0.0-0.4) 08/23/19 03:03 Baso # 0.1 K/mm3 (0.0-0.1) 08/23/19 03:03 Seg Neutrophils % 70.4 % (40.0-70.0) H 08/23/19 03:03 Seg Neutrophils # 6.7 K/mm3 (1.8-7.7) 08/23/19 03:03 VBG pH 7.425 (7.320-7.420) H 08/22/19 23:31 Sodium 132 mmol/L (137-145) L 08/23/19 03:03 Potassium 4.5 mmol/L (3.6-5.0) 08/23/19 03:03 Chloride 90.5 mmol/L (98-107) L 08/23/19 03:03 Carbon Dioxide 29 mmol/L (22-30) 08/23/19 03:03 Anion Gap 17 mmol/L 08/23/19 03:03 BUN 11 mg/dL (7-17) 08/23/19 03:03 Creatinine 0.5 mg/dL (0.7-1.2) L 08/23/19 03:03 Estimated GFR > 60 ml/min 08/23/19 03:03 BUN/Creatinine Ratio 22 % 08/23/19 03:03 Glucose 343 mg/dL (65-100) H 08/23/19 03:03 POC Glucose 337 (70-105) H 08/24/19 12:28 Hemoglobin A1c 11.9 % (4-6) H 08/23/19 03:03 Calcium 9.0 mg/dL (8.4-10.2) 08/23/19 03:03 Active Medications - Current Medications Current Medications: Generic Name Dose Route Start Last Admin Trade Name Freq PRN Reason Stop Dose Admin Acetaminophen 650 mg 08/23/19 02:53 Tylenol PO Q4H PRN Pain MILD(1-3)/Fever >100.5/FUNES Dextrose 50 ml 08/23/19 03:34 D50w (25gm) Syringe IV Q30MIN PRN Hypoglycemia Protocol Heparin Sodium (Porcine) 5,000 unit 08/24/19 22:00 Heparin SUB-Q Q12HR LATA Sodium Chloride 1,000 mls @ 150 mls/hr 08/23/19 03:00 08/24/19 14:07 Nacl 0.9% 1000 Ml IV 150 mls/hr DIRECT LATA Administration Piperacillin Sod/Tazobactam Sod 4.5 gm in 100 mls @ 200 mls/hr 08/23/19 06:00 08/24/19 14:07 Zosyn/Ns 4.5gm/100ml IV 200 mls/hr Q8HR LATA Administration Protocol Insulin Human Isoph/Insulin Regular 10 unit 08/23/19 17:00 08/24/19 08:49 Humulin 70/30 SUB-Q 10 unit BIDDIAB LATA Administration Insulin Human Lispro 0 unit 08/23/19 06:00 08/24/19 12:52 Humalog SUB-Q 8 unit Q6HR LATA Administration Protocol Morphine Sulfate 2 mg 08/23/19 02:53 08/24/19 12:49 Morphine IV 2 mg Q4H PRN Administration Pain, Moderate (4-6) Ondansetron HCl 4 mg 08/23/19 02:53 Zofran IV Q8H PRN Nausea And Vomiting Sodium Chloride 10 ml 08/23/19 10:00 08/24/19 09:21 Sodium Chloride Flush Syringe 10 Ml IV 10 ml BID LATA Administration Sodium Chloride 10 ml 08/23/19 02:53 Sodium Chloride Flush Syringe 10 Ml IV PRN PRN LINE FLUSH Nutrition/Malnutrition Assess - Dietary Evaluation Nutrition/Malnutrition Findings: Nutrition Notes Start: 08/23/19 08:40 Freq: Status: Active Protocol: Document 08/23/19 08:40 ROZ (Rec: 08/23/19 10:31 ROZ [id number]) Co-Sign 08/23/19 08:40 LP Nutrition Notes Need for Assessment generated from: MD Order Initial or Follow up Assessment Current Diagnosis Diabetes Current Diet Consistent CHO Labs/Tests BG 343 Hgb A1C 11.9 Pertinent Medications Reviewed Height 5 ft 3 in Weight 86.183 kg [place] Body Weight (kg) 52.27 BMI 33.6 Weight change and time frame 9.8% wt change in 2 years Weight Status Obese Subjective/Other Information MD consult for diet education. Pt stated she's had some wt loss. CRA OFFICER pt ate all 3 meals a day. Pt stated her appetite is getting better. Pt ate 100% of breakfast. Educated pt on a DM diet. Pt had a family member translate. Provided anguillan handout Burn Absent Trauma Absent GI Symptoms None Current % PO Good (75-100%) Minimum of two criteria No physical signs of malnutrition #1 Nutrition Diagnosis Food and nutrition-related knowledge deficit Etiology Lack of DM education CRA OFFICER As Evidenced by Signs and Symptoms BG 343, Hgb A1C 11.9, new onset diabetes Is patient on ventilator? No Is Patient Ambulatory and/or Out of Bed Yes REE-([facility]-ambulatory/OOB) [ 1879.748 NUTR.MSJOOB] Kcal/Kg value to use for calculation 17 Approximate Energy Requirements Using 1465 kcal/Kg Calculation Used for Recommendations Kcal/kg Additional Notes Protein: 55-69g (0.8-1g/kg AdjBW 69kg) Fluid: 1 ml/kcal Nutrition Intervention Change Diet Order: Continue current Teaching Recipient Patient,Family Learning Readiness Fair Teaching Methods Discussion,Handout Response to Teaching Reinforcement needed Education Handouts Provided Argentine MNT for DM Barriers to Learning Language RD phone number provided Yes Patient aware of follow up options Yes Goal #1 Follow a consistent CHO diet Goal #2 Meet at least 75% of energy and protein needs via PO intakes Anticipated Discharge Needs: Consistent CHO diet Follow-Up By: 08/27/19 Additional Comments F/U further edu. and stable PO intakes
[2019-08-24] MEDS: HEPARIN 5,000 UNIT/1 ML VIAL SUB-Q SCH (21:39)
[2019-08-25] MEDS: INSULIN LISPRO 100 UNIT/ML SUB-Q SCH ×4 (00:24→17:56)
[2019-08-25] MEDS: PIPERACIL/TAZOBACTA 4.5/NS 100 4.5 GM/100 ML VIAL IV SCH ×3 (06:06→22:18)
[2019-08-25] MEDS: INSULIN NPH/REGULAR 70/30 INJ SUB-Q SCH ×2 (08:45→17:54)
[2019-08-25] MEDS: HEPARIN 5,000 UNIT/1 ML VIAL SUB-Q SCH ×2 (09:29→22:18)
--- NOTE | 2019-08-25 12:38 | Progress Note ---
Assessment and Plan - Patient Problems (1) Abscess Current Visit: Yes Status: Acute Plan to address problem: Pt stable. s/p back abscess I&D - POD#1. appears to be doing well. Ok to d/c home from my perspective with daily dressing changes. Rec: 1) d/c home when cleared by Medicine 2) change packing daily 3) may shower and get wound wet. Pat dry after shower and repack. 4) f/u in office in 2 weeks 5) complete 10 course of Abx due to poorly controlled DM Please call with questions. Time=10min Subjective Date of service: 08/25/19 Patient Reports: Positive: no new complaints, other (no issues o/n. Would like something for constipation) Objective Vital Signs - 12hr 08/25/19 08/25/19 05:06 12:00 Temperature 98.8 F 99.4 F Pulse Rate 84 Respiratory 20 18 Rate Blood Pressure 141/70 Blood Pressure 148/73 [Right] - General physical appearance no distress, no pain - Respiratory normal expansion, normal respiratory effort - Integumentary other (packing in place. now with reactive erythema. less tender) - Labs 08/23/19 03:03 08/23/19 03:03
[2019-08-25] MEDS: POLYETHYLENE GLYCOL 3350 17 GM POWDER PO SCH (14:47)
[2019-08-25] MEDS: ACETAMINOPHEN 325 MG TAB PO PRN (15:55)
--- NOTE | 2019-08-25 16:00 | Progress Note ---
Assessment and Plan Assessment and plan: Patient is a 49-year-old woman with no medical problem comes emergency room because she has had a lump on her back that started 1 month ago. Patient stated the lump is been getting bigger, increased pain, fever and chills. Also complained of increased thirst, frequent urination and weight loss of 12 pounds over the last 3 months, dry mouth and generalized weakness. Patient was found to have a abscess in the thoracic area, I&D was done, she received 1 dose of clindamycin. Patient is being admitted for new onset diabetes, abscess * CT Thoracic spine with IV contrast: Soft tissue findings as outlined in report, worrisome for subcutatneous abscess Thoracic abscess s/p bedside debribement today,this is second debridement, as she had I-n-D done in ED follow wound cultures Start vancomycin, Zosyn obtain blood culture, wound culture Surgery was consulted Start IV morphine New onset diabetes mellitus type 2 continue IV fluid, check fingersticks, start insulin Dietary consult, checked hemoglobin A1c 11.9, start 70/30 DVT prophylaxis change to sq heparin Disposition: continue inpatient care, await for final wound care, anticipate discharge tomorrow History Interval history: Patient was seen and examined. Follow-up on current diagnosis Thoracic back abscess. Overnight uneventful as no events directly reported to me. Patient denies any chest pain, shortness breath, nausea/vomiting or severe headaches. Imaging, nursing note, chart, labs and old chart reviewed. Discussed with patient. Sister in law at bedside used as Evidence Specialist. Hospitalist Physical - Physical exam Narrative exam: Gen: WDWN, NAD, Awake, Alert, Orientated x 3 HEENT: NCAT, EOMI, PERRL, OP Clear Neck: supple, no adenopathy, no thyromegaly, no JVD CVS/Heart: RRR, normal S1S2, pulses present bilaterally Chest/Lungs: CTA B, Symmetrical chest expansion, good air entry bilaterally GI/Abdomen: soft, NTND, good bowel sounds, no guarding or rebound /Bladder: no suprapubic tenderness, no CVA, NO paraspinal tenderness Extermity/Skin: large thoracic abscess with vertical surgical cut draining dark blood, tender also, above that area is another half dollar size cystic like lesion MSK: FROM x 4 Neuro: CN 2-12 grossly intact, no new focal deficits Psych: calm - Constitutional Vitals: Temp Pulse Resp BP Pulse Ox 99.4 F 84 18 148/73 93 08/25/19 12:00 08/25/19 12:00 08/25/19 12:00 08/25/19 12:00 08/24/19 22:03 Results - Labs CBC & Chem 7: 08/23/19 03:03 08/23/19 03:03 Labs: Laboratory Last Values WBC 9.5 K/mm3 (4.5-11.0) 08/23/19 03:03 RBC 4.61 M/mm3 (3.65-5.03) 08/23/19 03:03 Hgb 13.9 gm/dl (10.1-14.3) 08/23/19 03:03 Hct 39.9 % (30.3-42.9) 08/23/19 03:03 MCV 87 fl (79-97) 08/23/19 03:03 MCH 30 pg (28-32) 08/23/19 03:03 MCHC 35 % (30-34) H 08/23/19 03:03 RDW 13.2 % (13.2-15.2) 08/23/19 03:03 Plt Count 252 K/mm3 (140-440) 08/23/19 03:03 Lymph % (Auto) 18.0 % (13.4-35.0) 08/23/19 03:03 [place] % (Auto) 7.1 % (0.0-7.3) 08/23/19 03:03 Eos % (Auto) 3.5 % (0.0-4.3) 08/23/19 03:03 Baso % (Auto) 1.0 % (0.0-1.8) 08/23/19 03:03 Lymph # 1.7 K/mm3 (1.2-5.4) 08/23/19 03:03 [place] # 0.7 K/mm3 (0.0-0.8) 08/23/19 03:03 Eos # 0.3 K/mm3 (0.0-0.4) 08/23/19 03:03 Baso # 0.1 K/mm3 (0.0-0.1) 08/23/19 03:03 Seg Neutrophils % 70.4 % (40.0-70.0) H 08/23/19 03:03 Seg Neutrophils # 6.7 K/mm3 (1.8-7.7) 08/23/19 03:03 VBG pH 7.425 (7.320-7.420) H 08/22/19 23:31 Sodium 132 mmol/L (137-145) L 08/23/19 03:03 Potassium 4.5 mmol/L (3.6-5.0) 08/23/19 03:03 Chloride 90.5 mmol/L (98-107) L 08/23/19 03:03 Carbon Dioxide 29 mmol/L (22-30) 08/23/19 03:03 Anion Gap 17 mmol/L 08/23/19 03:03 BUN 11 mg/dL (7-17) 08/23/19 03:03 Creatinine 0.5 mg/dL (0.7-1.2) L 08/23/19 03:03 Estimated GFR > 60 ml/min 08/23/19 03:03 BUN/Creatinine Ratio 22 % 08/23/19 03:03 Glucose 343 mg/dL (65-100) H 08/23/19 03:03 POC Glucose 263 (70-105) H 08/25/19 11:48 Hemoglobin A1c 11.9 % (4-6) H 08/23/19 03:03 Calcium 9.0 mg/dL (8.4-10.2) 08/23/19 03:03 Active Medications - Current Medications Current Medications: Generic Name Dose Route Start Last Admin Trade Name Freq PRN Reason Stop Dose Admin Acetaminophen 650 mg 08/23/19 02:53 08/25/19 15:55 Tylenol PO 650 mg Q4H PRN Administration Pain MILD(1-3)/Fever >100.5/FUNES Bisacodyl 10 mg 08/26/19 13:00 Dulcolax PO 08/26/19 13:01 QDAY ONE Dextrose 50 ml 08/23/19 03:34 D50w (25gm) Syringe IV Q30MIN PRN Hypoglycemia Protocol Heparin Sodium (Porcine) 5,000 unit 08/24/19 22:00 08/25/19 09:29 Heparin SUB-Q 5,000 unit Q12HR LATA Administration Piperacillin Sod/Tazobactam Sod 4.5 gm in 100 mls @ 200 mls/hr 08/23/19 06:00 08/25/19 14:50 Zosyn/Ns 4.5gm/100ml IV 200 mls/hr Q8HR LATA Administration Protocol Insulin Human Isoph/Insulin Regular 10 unit 08/23/19 17:00 08/25/19 08:45 Humulin 70/30 SUB-Q 10 unit BIDDIAB LATA Administration Insulin Human Lispro 0 unit 08/23/19 06:00 08/25/19 12:27 Humalog SUB-Q 6 unit Q6HR LATA Administration Protocol Morphine Sulfate 2 mg 08/23/19 02:53 08/24/19 21:52 Morphine IV 2 mg Q4H PRN Administration Pain, Moderate (4-6) Ondansetron HCl 4 mg 08/23/19 02:53 Zofran IV Q8H PRN Nausea And Vomiting Polyethylene Glycol 17 gm 08/25/19 13:00 08/25/19 14:47 Miralax 3350 PO 17 gm QDAY LATA Administration Sodium Chloride 10 ml 08/23/19 10:00 08/25/19 09:42 Sodium Chloride Flush Syringe 10 Ml IV Not Given BID LATA Sodium Chloride 10 ml 08/23/19 02:53 Sodium Chloride Flush Syringe 10 Ml IV PRN PRN LINE FLUSH Nutrition/Malnutrition Assess - Dietary Evaluation Nutrition/Malnutrition Findings: Nutrition Notes Start: 08/23/19 08:40 Freq: Status: Active Protocol: Document 08/23/19 08:40 ROZ (Rec: 08/23/19 10:31 ROZ [id number]) Co-Sign 08/23/19 08:40 LP Nutrition Notes Need for Assessment generated from: MD Order Initial or Follow up Assessment Current Diagnosis Diabetes Current Diet Consistent CHO Labs/Tests BG 343 Hgb A1C 11.9 Pertinent Medications Reviewed Height 5 ft 3 in Weight 86.183 kg [place] Body Weight (kg) 52.27 BMI 33.6 Weight change and time frame 9.8% wt change in 2 years Weight Status Obese Subjective/Other Information MD consult for diet education. Pt stated she's had some wt loss. 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 Pt stated her appetite is getting better. Pt ate 100% of breakfast. Educated pt on a DM diet. Pt had a family member translate. 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 No Is Patient Ambulatory and/or Out of Bed Yes REE-([place]. Jeor-ambulatory/OOB) [ 1879.748 NUTR.MSJOOB] Kcal/Kg value to use for calculation 17 Approximate Energy Requirements Using 1465 kcal/Kg Calculation Used for Recommendations Kcal/kg Additional Notes Protein: 55-69g (0.8-1g/kg AdjBW 69kg) Fluid: 1 ml/kcal Nutrition Intervention Change Diet Order: Continue current Teaching Recipient Patient,Family Learning Readiness Fair Teaching Methods Discussion,Handout Response to Teaching Reinforcement needed Education Handouts Provided German MNT for DM Barriers to Learning Language RD phone number provided Yes Patient aware of follow up options Yes Goal #1 Follow a consistent CHO diet Goal #2 Meet at least 75% of energy and protein needs via PO intakes Anticipated Discharge Needs: Consistent CHO diet Follow-Up By: 08/27/19 Additional Comments F/U further edu. and stable PO intakes
[2019-08-26] MEDS: INSULIN LISPRO 100 UNIT/ML SUB-Q SCH ×3 (00:05→12:35)
[2019-08-26] MEDS: PIPERACIL/TAZOBACTA 4.5/NS 100 4.5 GM/100 ML VIAL IV SCH (06:16)
[2019-08-26 06:56] LABS: Hematocrit 38.5 % (30.3-42.9); Hemoglobin 13.2 gm/dl (10.1-14.3); Mean Corpuscular HGB Conc 34 % (30-34); Mean Corpuscular Volume 87 fl (79-97); Platelet Count 364 K/mm3 (140-440); Red Blood Count 4.44 M/mm3 (3.65-5.03); Red Cell Distribution Width 13.4 % (13.2-15.2)
[2019-08-26 07:30] LABS: BUN/Creatinine Ratio 12; Blood Urea Nitrogen 6 mg/dL (7-17); Hemolysis Index 5
--- NOTE | 2019-08-26 07:41 | Discharge Summary ---
Providers - Providers Date of Admission: 08/23/19 04:19 Attending physician: REJI GOMEZ MD 08/23/19 02:56 Consult to Physician [CONS] Stat Comment: Consulting Provider: ROMINA NORMAN Physician Instructions: Reason For Exam: abscess, cellulitis 08/23/19 03:35 Consult to Dietitian/Nutrition [CONS] Routine Physician Instructions: Reason For Exam: Reason for Consult: Patient on ventilator Reason for Consult: Diet education 08/23/19 16:28 Consult to Wound/ET Nurse [CONS] Routine Reason For Exam: wound eval 08/24/19 07:09 Consult to Wound/ET Nurse [CONS] Routine Reason For Exam: wound eval [facility] Condition: Fair Hospital course: 49-year-old woman with no medical problem comes emergency room because she has had a lump on her back that started 1 month ago. Patient stated the lump is been getting bigger, increased pain, fever and chills. Also complained of increased thirst, frequent urination and weight loss of 12 pounds over the last 3 months, dry mouth and generalized weakness. Patient was found to have a abscess in the thoracic area, I&D was done, she received 1 dose of clindamycin. Patient is being admitted for new onset diabetes, abscess * CT Thoracic spine with IV contrast: Soft tissue findings as outlined in report, worrisome for subcutatneous abscess Thoracic abscess Status post bedside debridements, patient was discharged on oral antibiotics and to follow-up in general surgery and wound care clinic. New onset diabetes mellitus type 2 Patient was started on insulins. DVT prophylaxis change to sq heparin Preventative health counseling performed for 17 minutes Disposition: - TO HOME OR SELFCARE Time spent for discharge: 33 minutes Core Measure Documentation - Palliative Care Palliative Care/ Comfort Measures: Not Applicable - Core Measures Any of the following diagnoses?: none Exam - Constitutional Vitals: Temp Pulse Resp BP Pulse Ox 98.9 F 81 16 139/64 96 08/26/19 04:32 08/25/19 16:13 08/26/19 04:32 08/26/19 04:32 08/25/19 16:13 General appearance: Present: no acute distress, well-nourished - EENT Eyes: Present: PERRL ENT: hearing intact, clear oral mucosa - Neck Neck: Present: supple, normal ROM - Respiratory Respiratory effort: normal Respiratory: bilateral: CTA - Cardiovascular Heart Sounds: Present: S1 & S2. Absent: rub, click - Extremities Extremities: pulses symmetrical, No edema Peripheral Pulses: within normal limits - Abdominal General gastrointestinal: Present: soft, non-tender, non-distended, normal bowel sounds Female genitourinary: Present: normal - Integumentary Integumentary: Present: clear, warm, dry (Surgical dressing not removed on thorax) - Musculoskeletal Musculoskeletal: gait normal, strength equal bilaterally - Psychiatric Psychiatric: appropriate mood/affect, intact judgment & insight - Neurologic Neurologic: CNII-XII intact, moves all extremities Plan [facility] [Primary Care Provider[facility] - 3-5 Days Forms: Accompanied Note Prescriptions: Amoxicillin/Potassium Clav [Augmentin 875-125 Tablet] 1 each PO BID #14 tablet Polyethylene Glycol 3350 [Miralax 3350] 17 gm PO QDAY #30 powd.pack Insulin NPH/Regular [NovoLIN 70/30] 15 unit SUB-Q BIDDIAB #1 vial
[2019-08-26] MEDS: POLYETHYLENE GLYCOL 3350 17 GM POWDER PO SCH (09:12)
[2019-08-26] MEDS: ACETAMINOPHEN 325 MG TAB PO PRN (09:56)
[2019-08-26] MEDS: HEPARIN 5,000 UNIT/1 ML VIAL SUB-Q SCH (09:57)
[2019-08-26] MEDS: INSULIN NPH/REGULAR 70/30 INJ SUB-Q SCH (10:01)
[2019-08-26 12:22] VITALS: BP 141/78
== END 2019-08-26 14:10 | disposition home or self-care (01) | DRG 572 ==
LOC: ED 19:27 → 3A 08-23 04:19
PROVIDERS: ADMIT Internal Medicine; ATTEND Internal Medicine
PROC: 0J970ZZ Drainage of Back Subcutaneous Tissue and Fascia, Open Approach (ICD-10-PCS; principal; 2019-08-24)
PROC: 0JB70ZZ Excision of Back Subcutaneous Tissue and Fascia, Open Approach (ICD-10-PCS; 2019-08-25)
DX: L03.312 Cellulitis of back [any part except buttock and flank] (principal); L02.212 Cutaneous abscess of back [any part, except buttock and flank]; Z88.1 Allergy status to other antibiotic agents; E11.65 Type 2 diabetes mellitus with hyperglycemia; Z82.49 Family history of ischemic heart disease and other diseases of the circulatory system
CPT/HCPCS: 36415; 72129; 80048; 82805; 82962; 83036; 85025; 85027; 87040; 87116; G0378; J1644; J1650; J1815; J2270; J2405; J2543; J3370; J7030; J7050; Q9967

== ENCOUNTER 2019-12-10 09:34 | Inpatient (IN) | payer SELFPAY ==
[2019-12-10] MEDS ORDERED: flumazeniL 0.5 MG/5 ML INJ IV ONE (09:42)
[2019-12-10] MEDS ORDERED: SUCCINYLCHOLINE CHLORIDE 200 MG/10 ML INJ MDV ONE (09:43)
[2019-12-10] MEDS ORDERED: ETOMIDATE 20 MG/10 ML INJ IV ONE (09:43)
[2019-12-10] MEDS ORDERED: SODIUM CHLORIDE 0.9% 1000 ML 1,000 ML ONE (09:48)
[2019-12-10] MEDS ORDERED: MIDAZOLAM 100 MG in SODIUM CHLORIDE 0.9% 80 ML IV ONE (10:00)
[2019-12-10] MEDS ORDERED: MIDAZOLAM 2 MG/2 ML INJ IV PRN (10:00)
[2019-12-10] MEDS ORDERED: LORazepam 2 MG/ML VIAL ONE (10:04)
[2019-12-10] MEDS ORDERED: LORazepam 2 MG/ML VIAL IV ONE (10:05)
--- NOTE | 2019-12-10 10:12 | Emergency Department Report ---
HPI - General Chief Complaint: Weakness PUI?: Yes Time Seen by Provider: 12/10/19 10:03 - [facility] HPI: Room 7 The patient is a 49-year-old female present with a chief complaint of weakness. Per the patient's friend the patient has been complaining of weakness and has been "sick" since yesterday. The patient was brought in to the ED by the friend where she was found to be hypoxic to 50% on room air in triage. Patient was immediately brought back to the exam room where she was found to have decreased level of consciousness. However with a sternal rub the patient would open her eyes when asked if anything is bothering her she replied no. The patient continued to be hypoxic between 40 and 50% on room air subsequently the decision to intubate using RSI was made ED Past Medical Hx - Past Medical History Previous Medical History?: Yes Hx Hypertension: Yes Hx Diabetes: Yes - Surgical History Past Surgical History?: No - Family History Family history: no significant - Social History Smoking Status: Unknown if ever smoked Substance Use Type: None - Medications Home Medications: Home Medications Medication Instructions Recorded Confirmed Last Taken Type Amoxicillin/Potassium Clav 1 each PO BID #14 tablet 08/26/19 Unknown Rx [Augmentin 875-125 Tablet] Insulin NPH/Regular [NovoLIN 70/30] 15 unit SUB-Q BIDDIAB #1 vial 08/26/19 Unknown Rx polyethylene glycoL 3350 [Miralax 17 gm PO QDAY #30 powd.pack 08/26/19 Unknown Rx 3350] ED Review of Systems ROS: Stated complaint: WEAKNESS Other details as noted in HPI Comment: Unobtainable due to pts medical conditions Physical Exam - Physical Exam Vital Signs: Vital Signs 12/10/19 09:44 Pulse Rate 138 H Respiratory 26 H Rate Blood Pressure 150/77 [Right] O2 Sat by Pulse 56 L Oximetry Physical Exam: GENERAL: The patient is well-developed well-nourished female lying on stretcher exhibiting tachypnea and decreased level of consciousness. [] HEENT: Normocephalic. Atraumatic. Patient has moist mucous membranes. NECK: Trachea midline CHEST/LUNGS: Tachypnea, accessory muscle use. No wheezing auscultated HEART/CARDIOVASCULAR: Regular. There is tachycardia. There is no gallop rub or murmur. ABDOMEN: Abdomen is soft, nontender. Patient has normal bowel sounds. There is no abdominal distention. SKIN: There is no rash. There is no edema. There is no diaphoresis. NEURO: The patient is lethargic. Patient opens eyes to sternal rub MUSCULOSKELETAL: There is no evidence of acute injury. ED Course Vital Signs 12/10/19 09:44 Pulse Rate 138 H Respiratory 26 H Rate Blood Pressure 150/77 [Right] O2 Sat by Pulse 56 L Oximetry - Central Line Placement Right Femoral Consent Obtained: emergent situation Time Out Performed: No Patient Placed on Monitor/Pulse Ox: Yes MD Prep: mask, gown, gloves Central Line Prep: Chlorhexidine scrub Local Anesthesia Used: Lidocaine 1% Amount of Anesthesia Used (mls): 5 Ultrasound Used for Placement: No Central Line Lumen Inserted: triple Bloods Obtained for Lab: No Central Line Position: good blood return, all ports aspirated, flus, other (Line secured with adhesive) Dressing Applied: Tegaderm Patient Tolerated Procedure: no complications Complications: none - Intubation Time Out Performed: No Sedative: Etomidate Mg Given: 20 Paralytic: Succinylcholine Mg Given: 100 Laryngoscope: fiberoptic video scope Size: 3 ET Tube Size: 7 Tube Secured Depth (cm): 21 Tube Secured Location: lips Tube Placement Confirmation: visualized tube passing t, equal breath sounds bilat, no breath sounds over epi, confirmation by capnometr Patient Tolerated Procedure: no complications Intubation Complications: none ED Medical Decision Making - Lab Data Result diagrams: 12/10/19 Unknown 12/10/19 09:45 - EKG Data -: EKG Interpreted by Me EKG shows normal: sinus rhythm Rate: tachycardia (138 bpm) - EKG Data When compared to previous EKG there are: previous EKG unavailable Interpretation: nonspecific ST-T wave raciel - Radiology Data Radiology results: report reviewed (Chest x-ray), image reviewed (Chest x-ray) interpreted by me: Chest [id number] lung consolidation [facility] [address] [place] [address] XRay Report Signed Patient: SONIA MARR MR# : [id number] : 1970 Acct:[id number] Age/Sex: 49 / F ADM Date: 12/10/19 Loc: ED Attending Dr: Ordering Physician: IBRAHIMA BATES MD Date of Service: 12/10/19 Procedure(s): XR chest 1V ap Accession Number(s): [id number] cc: IBRAHIMA BATES MD Fluoro Time In Minutes: CHEST 1 VIEW INDICATION / CLINICAL INFORMATION: Hypoxia, respiratory failure. COMPARISON: None available. FINDINGS: SUPPORT DEVICES: NG tube is in place as well as endotracheal tube. HEART / MEDIASTINUM: Heart size is minimally enlarged. LUNGS / PLEURA: There is extensive bilateral lung consolidation either pneumonia or edema. Small effusions may be present as well. No pneumothorax. ADDITIONAL FINDINGS: No significant additional findings. IMPRESSION: 1 Extensive lung consolidation with tube placements. Signer Name: Dorian Carlos MD Signed: 12/10/2019 10:40 AM Workstation Name: [id number] Transcribed By: CHERIE Dictated By: Dorian Carlos MD Electronically Authenticated By: Dorian Carlos MD Signed Date/Time: 12/10/19 1040 DD/ 1038 TD/TT: - Differential Diagnosis Acute respiratory failure, pneumonia, Covid 19, symptomatic anemia, Critical Care Time: Yes Critical care time in (mins) excluding proc time.: 30 Critical care attestation.: If time is entered above; I have spent that time in minutes in the direct care of this critically ill patient, excluding procedure time. ED Disposition Clinical Impression: Respiratory failure, Consolidation of left lower lobe of lung, Consolidation of right lower lobe of lung Disposition: OP ADMIT IP TO THIS HOSP Is pt being admited?: Yes Does the pt Need Aspirin: No Condition: Serious Referrals: PRIMARY CAREMD [Primary Care Provider] - 3-5 Days Time of Disposition: 12:43 (Hospitalist paged)
[2019-12-10 10:38] LABS: Partial Thromboplastin Time 21.3 Sec. (24.2-36.6)
[2019-12-10 10:41] LABS: Albumin 3.5 g/dL (3.9-5); Calcium 9.3 mg/dL (8.4-10.2)
--- NOTE | 2019-12-10 10:44 | XRay Report ---
CHEST 1 VIEW INDICATION / CLINICAL INFORMATION: Hypoxia, respiratory failure. COMPARISON: None available. FINDINGS: SUPPORT DEVICES: NG tube is in place as well as endotracheal tube. HEART / MEDIASTINUM: Heart size is minimally enlarged. LUNGS / PLEURA: There is extensive bilateral lung consolidation either pneumonia or edema. Small effu sions may be present as well. No pneumothorax. ADDITIONAL FINDINGS: No significant additional findings. IMPRESSION: 1 Extensive lung consolidation with tube placements. Signer Name: Dorian Carlos MD Signed: 12/10/2019 10:40 AM Workstation Name: [id number]
[2019-12-10 10:52] LABS: Chol/HDL Ratio 4.2 %
[2019-12-10] MEDS: NORepinephrine/NS 4 MG-250 ML 4 MG/250 ML BAG IV SCH ×2 (10:55→23:06)
[2019-12-10] MEDS ORDERED: NORepinephrine/NS 4 MG-250 ML 4 MG/250 ML BAG IV ONE ×2 (10:56→20:24)
[2019-12-10] MEDS ORDERED: cefTRIAXone/NS 2 GM/100 ML 2 GM/100 ML BAG IV ONE (11:00)
[2019-12-10 11:08] LABS: C-Reactive Protein 30.3 mg/dL (0.00-1.30)
[2019-12-10 11:14] LABS: ABG Base Excess -7.2 mmol/L (-2.0-3.0); ABG HCO3 17.3 mmol/L (20.0-26.0); ABG Methemoglobin 0.6 % (0.0-1.5); ABG PCO2 31.9 mm Hg; ABG PH 7.352 pH Units (7.350-7.450); ABG PO2 62.6 mm Hg (80.0-90.0)
[2019-12-10 11:16] LABS: Bilirubin,Urine NEG (Negative); Blood,Urine NEG (Negative); Color,Urine Yellow (Yellow); RBC,Urine < 1.0 /HPF (0.0-6.0); Urobilinogen,Urine < 2.0 mg/dL (<2.0); WBC,Urine < 1.0 /HPF (0.0-6.0)
[2019-12-10] MEDS ORDERED: AZITHROMYCIN 500 MG in SODIUM CHLORIDE 0.9% 250ML 250 ML IV ONE (11:30)
[2019-12-10 11:51] LABS: Hematocrit TNR % (30.3-42.9); Hemoglobin TNR gm/dl (10.1-14.3); Mean Corpuscular HGB Conc TNR % (30-34); Mean Corpuscular Volume TNR fl (79-97); Red Blood Count TNR M/mm3 (3.65-5.03)
[2019-12-10 11:52] LABS: Basophils # (Auto) TNR K/mm3 (0.0-0.1); Basophils % (Auto) TNR % (0.0-1.8); Eosinophils # (Auto) TNR K/mm3 (0.0-0.4); Eosinophils % (Auto) TNR % (0.0-4.3); Lymphocytes # (Auto) TNR K/mm3 (1.2-5.4); Lymphocytes % (Auto) TNR % (13.4-35.0); Mean Platelet Volume TNR fl (6-12); Monocytes # (Auto) TNR K/mm3 (0.0-0.8); Monocytes % (Auto) TNR % (0.0-7.3); Platelet Count TNR K/mm3 (140-440); Red Cell Distribution Width TNR % (13.2-15.2)
[2019-12-10] MEDS ORDERED: INSULIN REGULAR, HUMAN 100 UNITS/1 ML IV ONE (11:53)
[2019-12-10] MEDS ORDERED: FUROSEMIDE 40 MG/4 ML INJ IV ONE (11:57)
[2019-12-10 12:24] LABS: Basophils % (Auto) 0.1 % (0.0-1.8); Hematocrit 38.2 % (30.3-42.9); Hemoglobin 13.2 gm/dl (10.1-14.3); Lymphocytes # (Auto) 0.8 K/mm3 (1.2-5.4); Lymphocytes % (Auto) 8.1 % (13.4-35.0); Mean Corpuscular HGB Conc 35 % (30-34); Mean Corpuscular Volume 87 fl (79-97); Monocytes # (Auto) 0.3 K/mm3 (0.0-0.8); Monocytes % (Auto) 2.8 % (0.0-7.3); Platelet Count 315 K/mm3 (140-440); Red Cell Distribution Width 13.2 % (13.2-15.2)
[2019-12-10] MEDS ORDERED: ACETAMINOPHEN 650 MG RECT SUPP PR ONE ×2 (13:28→13:50)
[2019-12-10] MEDS ORDERED: ACETAMINOPHEN 325 MG RECT SUPP PR ONE (13:28)
[2019-12-10] MEDS ORDERED: ACETAMINOPHEN 650 MG RECT SUPP PR PRN (13:50)
[2019-12-10] MEDS ORDERED: MINERAL OIL/PETROLATUM, WHITE OPHTH OINT 3.5 GM OU PRN (13:55)
[2019-12-10] MEDS ORDERED: LIP THERAPY VASELINE TP PRN (13:55)
--- NOTE | 2019-12-10 14:30 | History and Physical Report ---
History of Present Illness Date of examination: 12/10/19 Date of admission: 12/10/19 12:46 Chief complaint: SOB History of present illness: The patient is a 49-year-old female with h/o HTN, DMtype 2 presented to ER today by her friend with a chief complaint of weakness. Per the patient's friend the patient has been complaining of weakness and has been feeling "sick" since yesterday. In the ED she was found to be hypoxic with O2 sat to 50% on room air in triage, was immediately brought back to the exam room where she was found to have decreased level of consciousness. The patient subsequently the intubated in the ER. CXR showed b/l PNA with consolidation, BG was 643, lactic acid 9.6, Cr 1.0 and bicarbonate was 14. Patient was given NS bolus, placed on insulin drip, started on levophed and admitted to ICU for further evaluation and Mx. No family member was present at the time of my encounter. Past Medical Hx - Past Medical History Previous Medical History?: Yes Hx Hypertension: Yes Hx Diabetes: Yes - Surgical History Past Surgical History?: No - Family History Family history: HTN - Social History Smoking Status: Unknown if ever smoked Substance Use Type: None Medications and Allergies Allergies Allergy/AdvReac Type Severity Reaction Status Date / Time No Known Allergies Allergy Verified 08/23/19 02:58 Home Medications Medication Instructions Recorded Confirmed Last Taken Type Amoxicillin/Potassium Clav 1 each PO BID #14 tablet 08/26/19 Unknown Rx [Augmentin 875-125 Tablet] Insulin NPH/Regular [NovoLIN 70/30] 15 unit SUB-Q BIDDIAB #1 vial 08/26/19 Unknown Rx polyethylene glycoL 3350 [Miralax 17 gm PO QDAY #30 powd.pack 08/26/19 Unknown Rx 3350] Active Meds: Active Medications Hydrophilic Ointment (Vaseline Lip Therapy) 1 applic TP Q2HR PRN PRN Reason: Dry Lips Midazolam HCl 100 mg/ Sodium (Chloride) 100 mls @ 2 mls/hr IV TITR ONE; P rotocol Stop: 12/12/19 11:59 Last Titration: 12/10/19 11:15 Dose: 2 mg/hr, 2 mls/hr Documented by: Norepinephrine (Levophed Drip 4 Mg/Ns 250 Ml) 4 mg in 250 mls @ 7.5 mls/hr IV TITR LATA; Protocol Last Admin: 12/10/19 10:55 Dose: 2 mcg/min, 7.5 mls/hr Documented by: Propofol (Diprivan 10 Mg/Ml) 1,000 mg in 100 mls @ 2.19 mls/hr IV TITR LATA; Protocol Last Titration: 12/10/19 14:05 Dose: 10 mcg/kg/min, 4.38 mls/hr Documented by: Midazolam HCl (Versed) 2 mg IV Q10MIN PRN PRN Reason: Sedation Multi-Ingred Cream/Lotion/Oil/Oint (Artificial Tears Ophth Oint) 1 applic OU Q4HR PRN PRN Reason: Dry Eye(s) Review of Systems ROS unobtainable: due to endotracheal tube, due to mental status Exam - Constitutional Vitals: Temp Pulse Resp BP Pulse Ox 130 H 35 H 125/67 88 12/10/19 13:45 12/10/19 13:45 12/10/19 13:45 12/10/19 13:45 General appearance: Present: well-nourished, other (intubated and sedated) - EENT Eyes: Absent: scleral icterus, conjunctival injection ENT: other (dry mucosa, intubated) - Neck Neck: Absent: rigidity, enlarged thyroid, cervical LAD - Respiratory Respiratory: bilateral: rales (on mechanical ventilation) - Cardiovascular Heart Sounds: Present: S1 & S2. Absent: rub, click - Extremities Extremities: pulses symmetrical, No edema Peripheral Pulses: within normal limits - Abdominal General gastrointestinal: Present: soft, non-tender, non-distended, normal bowel sounds - Integumentary Integumentary: Present: clear, warm. Absent: rash - Musculoskeletal Musculoskeletal: other (no joint effusion) - Psychiatric Psychiatric: no appropriate mood/affect, no intact judgment & insight - Neurologic Neurologic: other (patient unresponsive) HEART Score - HEART Score Troponin: Troponin T 0.047 ng/mL (0.00-0.029) H 12/10/19 09:45 Results - Labs CBC & Chem 7: 12/10/19 Unknown 12/11/19 07:38 Labs: Abnormal lab results 12/10/19 12/10/19 12/10/19 Range/Units 09:45 09:45 09:45 MCHC (30-34) % Lymph % (Auto) (13.4-35.0) % Lymph # (1.2-5.4) K/mm3 Seg Neutrophils % (40.0-70.0) % Seg Neutrophils # (1.8-7.7) K/mm3 APTT 21.3 L (24.2-36.6) Sec. D-Dimer 1063.15 H (0-234) ng/mlDDU ABG pO2 (80.0-90.0) mm Hg ABG HCO3 (20.0-26.0) mmol/L ABG O2 Saturation (95.0-99.0) % ABG Base Excess (-2.0-3.0) mmol/L Oxyhemoglobin (95.0-99.0) % Chloride 95.1 L (98-107) mmol/L Carbon Dioxide 14 L (22-30) mmol/L BUN 26 H (7-17) mg/dL Glucose 643 H* (65-100) mg/dL Lactic Acid 9.60 H* (0.7-2.0) mmol/L Ferritin (13.0-400.0) ng/mL AST 75 H (5-40) units/L Alkaline Phosphatase 162 H (35-129) units/L Lactate Dehydrogenase (91-180) units/L Troponin T 0.047 H (0.00-0.029) ng/mL C-Reactive Protein (0.00-1.30) mg/dL NT-Pro-B Natriuret Pep (0-900) pg/mL Albumin 3.5 L (3.9-5) g/dL Triglycerides 232 H (2-149) mg/dL LDL Cholesterol Direct 48 L (50-130) mg/dL HDL Cholesterol 25 L (40-59) mg/dL 12/10/19 12/10/19 12/10/19 Range/Units 09:45 09:45 09:45 MCHC (30-34) % Lymph % (Auto) (13.4-35.0) % Lymph # (1.2-5.4) K/mm3 Seg Neutrophils % (40.0-70.0) % Seg Neutrophils # (1.8-7.7) K/mm3 APTT (24.2-36.6) Sec. D-Dimer (0-234) ng/mlDDU ABG pO2 (80.0-90.0) mm Hg ABG HCO3 (20.0-26.0) mmol/L ABG O2 Saturation (95.0-99.0) % ABG Base Excess (-2.0-3.0) mmol/L Oxyhemoglobin (95.0-99.0) % Chloride (98-107) mmol/L Carbon Dioxide (22-30) mmol/L BUN (7-17) mg/dL Glucose 639 H* (65-100) mg/dL Lactic Acid (0.7-2.0) mmol/L Ferritin 1187.0 H (13.0-400.0) ng/mL AST (5-40) units/L Alkaline Phosphatase (35-129) units/L Lactate Dehydrogenase 877 H (91-180) units/L Troponin T (0.00-0.029) ng/mL C-Reactive Protein 30.30 H (0.00-1.30) mg/dL NT-Pro-B Natriuret Pep 3216 H (0-900) pg/mL Albumin (3.9-5) g/dL Triglycerides (2-149) mg/dL LDL Cholesterol Direct (50-130) mg/dL HDL Cholesterol (40-59) mg/dL 12/10/19 12/10/19 Range/Units 10:54 Unknown MCHC 35 H (30-34) % Lymph % (Auto) 8.1 L (13.4-35.0) % Lymph # 0.8 L (1.2-5.4) K/mm3 Seg Neutrophils % 89.0 H (40.0-70.0) % Seg Neutrophils # 9.2 H (1.8-7.7) K/mm3 APTT (24.2-36.6) Sec. D-Dimer (0-234) ng/mlDDU ABG pO2 62.6 L (80.0-90.0) mm Hg ABG HCO3 17.3 L (20.0-26.0) mmol/L ABG O2 Saturation 90.0 L (95.0-99.0) % ABG Base Excess -7.2 L (-2.0-3.0) mmol/L Oxyhemoglobin 87.8 L (95.0-99.0) % Chloride (98-107) mmol/L Carbon Dioxide (22-30) mmol/L BUN (7-17) mg/dL Glucose (65-100) mg/dL Lactic Acid (0.7-2.0) mmol/L Ferritin (13.0-400.0) ng/mL AST (5-40) units/L Alkaline Phosphatase (35-129) units/L Lactate Dehydrogenase (91-180) units/L Troponin T (0.00-0.029) ng/mL C-Reactive Protein (0.00-1.30) mg/dL NT-Pro-B Natriuret Pep (0-900) pg/mL Albumin (3.9-5) g/dL Triglycerides (2-149) mg/dL LDL Cholesterol Direct (50-130) mg/dL HDL Cholesterol (40-59) mg/dL - Imaging and Cardiology Chest x-ray: report reviewed (extensice consolidation b/l ) Assessment and Plan Acute hypoxic respiratory failure - due to extensive PNA - intubated, CC consulted - cont nebs, iv empiric abx Acute encephalopathy - likely from sepsis and hypoxia - frequent neuro check - treat underlying cause b/l PNA, r/o COVID - COVID test ordered, get blood Cx, sputum cx Suspected COVID 19 - test ordered, follow inflammatory markers Septic shock - BP dropped after intubation, started on levophed - cont iv fluid DKA - will start on insulin drip, monitor BMP per protocol Lactic acidosis - cont empiric abx, follow Cx, cont iv fluid Severe sepsis, due to PNA - follow cx, cont abx Dvt Px, cont on heparin The high probability of a clinically significant, sudden or life threatening deterioration of the [pulmonary, CVS, [employer]] system(s) required my full and direct attention, intervention and personal management. The aggregate critical care time was [48] minutes. This time is in addition to time spent performing reported procedures but includes the following: [x] Data Review and interpretation [x] Patient assessment and monitoring of vital signs [x] Documentation [x] Medication orders and management
[2019-12-10] MEDS ORDERED: DEXTROSE 50% IN WATER (25GM) 50 ML SYRINGE IV PRN (14:49)
[2019-12-10] MEDS ORDERED: D5W/0.45% NACL/KCL 20 MEQ 20 MEQ/1,000 ML BAG IV SCH (15:00)
[2019-12-10 16:21] LABS: Calcium 8.3 mg/dL (8.4-10.2)
[2019-12-10] MEDS ORDERED: D5W/0.45% NACL/KCL 20 MEQ 20 MEQ/1,000 ML BAG IV ONE (16:41)
[2019-12-10 16:56] LABS: ABG Base Excess -2.5 mmol/L (-2.0-3.0); ABG HCO3 21.5 mmol/L (20.0-26.0); ABG Methemoglobin 0.7 % (0.0-1.5); ABG Oxygen Saturation 81.2 % (95.0-99.0); ABG PCO2 35.2 mm Hg; ABG PH 7.404 pH Units (7.350-7.450); ABG PO2 46.1 mm Hg (80.0-90.0)
[2019-12-10] MEDS: INSULIN REGULAR, HUMAN 100 UNITS in SODIUM CHLORIDE 0.9% 99 ML IV SCH (17:02)
[2019-12-10] MEDS ORDERED: ACETAMINOPHEN 500 MG TAB ONE (17:26)
[2019-12-10] MEDS ORDERED: ACETAMINOPHEN 500 MG TAB PO ONE (19:07)
[2019-12-10 20:27] LABS: Calcium 9.1 mg/dL (8.4-10.2)
[2019-12-10 21:19] LABS: Calcium 8.4 mg/dL (8.4-10.2)
[2019-12-10] MEDS ORDERED: cefTRIAXone/NS 1 GM/50 ML 1 GM/50 ML BAG IV SCH (22:00)
[2019-12-10] MEDS: VASOPRESSIN 20 UNIT in SODIUM CHLORIDE 0.9% 100 ML IV SCH (22:10)
[2019-12-10] MEDS ORDERED: SODIUM CHLORIDE 0.9% 1000 ML 2,000 ML IV ONE (22:43)
[2019-12-10] MEDS ORDERED: SODIUM CHLORIDE 0.9% 1000 ML 1,000 ML IV SCH (23:00)
[2019-12-10] MEDS ORDERED: EPINEPHrine 1 MG/1 ML 8 MG in SODIUM CHLORIDE 0.9% 250ML 242 ML IV SCH (23:00)
[2019-12-10] MEDS: ACETAMINOPHEN 325 MG TAB PO PRN (23:54)
[2019-12-11] MEDS: SODIUM CHLORIDE 0.9% 1000 ML 1,000 ML IV SCH ×2 (00:59→06:51)
[2019-12-11 01:14] LABS: ABG Base Excess -5.1 mmol/L (-2.0-3.0); ABG HCO3 24.5 mmol/L (20.0-26.0); ABG Methemoglobin 0.8 % (0.0-1.5); ABG Oxygen Saturation 92.7 % (95.0-99.0); ABG PCO2 68.1 mm Hg; ABG PO2 76.9 mm Hg (80.0-90.0)
[2019-12-11 01:17] LABS: ABG PH 7.173 pH Units (7.350-7.450)
[2019-12-11] MEDS: NORepinephrine/NS 4 MG-250 ML 4 MG/250 ML BAG IV SCH ×7 (01:18→14:00)
[2019-12-11] MEDS: ACETAMINOPHEN 325 MG TAB PO PRN (04:24)
[2019-12-11] MEDS ORDERED: EPINEPHrine 1 MG/10 ML SYRINGE ONE ×2 (04:36→09:25)
[2019-12-11 05:21] LABS: Calcium 7.4 mg/dL (8.4-10.2)
[2019-12-11 05:57] LABS: ABG Base Excess -7.3 mmol/L (-2.0-3.0); ABG HCO3 21.1 mmol/L (20.0-26.0); ABG Methemoglobin 0.9 % (0.0-1.5); ABG Oxygen Saturation 92.1 % (95.0-99.0); ABG PCO2 55.1 mm Hg; ABG PH 7.201 pH Units (7.350-7.450); ABG PO2 66.9 mm Hg (80.0-90.0)
[2019-12-11] MEDS: VASOPRESSIN 20 UNIT in SODIUM CHLORIDE 0.9% 100 ML IV SCH (06:23)
[2019-12-11 08:16] LABS: Calcium 7.6 mg/dL (8.4-10.2)
[2019-12-11] MEDS ORDERED: PHENYLEPHRINE 10 MG/1 ML INJ SDV IV SCH (09:15)
--- NOTE | 2019-12-11 09:16 | Event Note ---
Date: 12/10/19 Marielena carver called--See Code sheet ACLS protocol initiated Epi/Bicarb give Chest compressions done ROSC
[2019-12-11] MEDS ORDERED: CALCIUM CHLORIDE 1,000 MG/10 ML SYRINGE IV ONE (09:25)
[2019-12-11] MEDS ORDERED: SODIUM BICARB 8.4% 50 MEQ/50 ML SYRINGE IV ONE ×2 (09:25→10:00)
[2019-12-11] MEDS: PHENYLEPHRINE 100 MG in SODIUM CHLORIDE 0.9% 90 ML IV SCH ×2 (09:29→13:40)
[2019-12-11] MEDS ORDERED: AZITHROMYCIN 500 MG in SODIUM CHLORIDE 0.9% 250ML 250 ML IV SCH (10:00)
[2019-12-11] MEDS ORDERED: cefTRIAXone/NS 2 GM/100 ML 2 GM/100 ML BAG IV SCH (10:00)
--- NOTE | 2019-12-11 10:43 | Event Note ---
Date: 12/11/19 Patient had cardiac arrest x 4 this am Initiated ACLS each time and given epinephrine and bicarbonate - refer to code sheet Return of pulse each time, Patient on 3 pressors already, on ventilator with 100% FiO2, will start the 4th pressor called family, updated they came to the ICU - discussed mx and plan with hospital carrier aware that patient had 5 times cardiac arrest so far, her oxygenation and MAP still not optimal patient noted with fixed pupil, has no cough or gag reflex I told family that patient has very poor prognosis with severe sepsis, encephalopathy with likely severe anoxic brain injury, acute renal failure, respiratory failure and s/p multiple cardiac arrest. CC time 140 minutes
--- NOTE | 2019-12-11 10:49 | Progress Note ---
Assessment and Plan S/P cardiac arrest - coded 5 times since admission - from severe sepsis, severe hypoxia - consult cardiology, obtain 2d echo Acute hypoxic respiratory failure - due to extensive PNA - intubated, CC consulted - cont nebs, iv empiric abx Acute encephalopathy - likely from sepsis, severe hypoxia, cardiac arrest - frequent neuro check - treat underlying cause - ordered CT head, consulted neurology Severe Septic shock - on multiple pressors - cont iv fluid, consult ID Severe sepsis, due to PNA - follow cx, cont abx b/l PNA, r/o COVID - COVID test ordered, negative blood Cx, sputum cx pending Suspected COVID 19 - test ordered, follow inflammatory markers DKA - cont on insulin drip, monitor BMP per protocol Lactic acidosis - cont empiric abx, follow Cx, start on bicarbonate drip - ordered CT abdomen/pelvis Acute renal failure, likely ATN from persistent hypotension and severe sepsis - monitor BMP, consult nephrology Dvt Px, cont on heparin Full code very poor prognosis Remains with poor circulation on maximum pressor support and persistent poor oxygenation on ventilator with 100% FiO2. The high probability of a clinically significant, sudden or life threatening deterioration of the [pulmonary, CVS, [employer]] system(s) required my full and direct attention, intervention and personal management. The aggregate critical care time was [48] minutes. This time is in addition to time spent performing reported procedures but includes the following: [x] Data Review and interpretation [x] Patient assessment and monitoring of vital signs [x] Documentation [x] Medication orders and management Brief History: The patient is a 49-year-old female with h/o HTN, DMtype 2 presented to ER by her friend with a chief complaint of weakness. In the ED she was found to be hypoxic with O2 sat to 50% on room air in triage, was immediately brought back to the exam room where she was found to have decreased level of consciousness, subsequently the intubated. CXR showed b/l PNA with consolidation, BG was 643, lactic acid 9.6, Cr 1.0 and bicarbonate was 14. Patient was given NS bolus, placed on insulin drip, started on levophed and admitted to ICU for further evaluation and Mx. Following admission she remained hypotensive on multiple pressors, s/p cardiac arrest x5 till now. Remains with poor circulation on maximum pressor support, persistent poor oxygenation on ventilator with 100% FiO2. Updated family by phone and at bedside. Subjective Date of service: 12/11/19 Interval history: Patient seen and examined updated family s/p cardiac arrest x4 this am O2 sat at low 80s on 100% FiO2 MAP at high 50s to low 60s on 4 pressors patient unresponsive, spiking high fever Objective - Exam Narrative Exam: General appearance: Present: other (intubated and unresponsive) - EENT Eyes: Absent: scleral icterus, conjunctival injection ENT: other (dry mucosa, intubated), noted possibly fecal mater with NG suction - Neck Neck: Absent: rigidity, enlarged thyroid, cervical LAD - Respiratory Respiratory: bilateral: rales (on mechanical ventilation) - Cardiovascular Heart Sounds: Present: S1 & S2. Absent: rub, click - Extremities Extremities: pulses symmetrical, No edema Peripheral Pulses: within normal limits - Abdominal General gastrointestinal: Present: soft, non-tender, non-distended, normal bowel sounds - Integumentary Integumentary: Present: clear, warm. Absent: rash - Musculoskeletal Musculoskeletal: other (no joint effusion) - Psychiatric Psychiatric: no appropriate mood/affect, no intact judgment & insight - Neurologic Neurologic: other (patient unresponsive), fix dilated pupil, no cough or gag reflex - Skin No rash - Constitutional Vitals: Vital Signs - 12hr 12/10/19 12/10/19 12/10/19 22:50 23:00 23:10 Temperature Pulse Rate 122 H 125 H 129 H Pulse Rate [ From Monitor] Respiratory 15 15 17 Rate Blood Pressure 75/49 75/49 Blood Pressure [Right] O2 Sat by Pulse 92 92 95 Oximetry 12/10/19 12/10/19 12/10/19 23:20 23:25 23:30 Temperature 102.3 F H Pulse Rate 131 H 135 H 131 H Pulse Rate [ From Monitor] Respiratory 17 17 17 Rate Blood Pressure 81/54 104/61 Blood Pressure 81/54 [Right] O2 Sat by Pulse 96 97 97 Oximetry 12/10/19 12/10/19 12/10/19 23:40 23:42 23:44 Temperature 103.5 F H Pulse Rate 130 H 130 H Pulse Rate [ From Monitor] Respiratory 13 14 Rate Blood Pressure 104/61 104/61 Blood Pressure [Right] O2 Sat by Pulse 97 97 Oximetry 12/10/19 12/11/19 12/11/19 23:45 00:00 00:15 Temperature Pulse Rate 129 H 128 H 128 H Pulse Rate [ 126 H From Monitor] Respiratory 16 18 20 Rate Blood Pressure 109/61 113/62 117/60 Blood Pressure [Right] O2 Sat by Pulse 97 97 98 Oximetry 12/11/19 12/11/19 12/11/19 00:30 00:45 00:46 Temperature Pulse Rate 127 H 127 H 127 H Pulse Rate [ From Monitor] Respiratory 18 15 Rate Blood Pressure 123/63 119/60 119/60 Blood Pressure [Right] O2 Sat by Pulse 98 98 97 Oximetry 12/11/19 12/11/19 12/11/19 01:00 01:15 01:30 Temperature Pulse Rate 125 H 128 H 128 H Pulse Rate [ From Monitor] Respiratory 18 18 17 Rate Blood Pressure 111/60 117/61 120/58 Blood Pressure [Right] O2 Sat by Pulse 97 97 96 Oximetry 12/11/19 12/11/19 12/11/19 01:45 02:00 02:15 Temperature Pulse Rate 129 H 129 H 129 H Pulse Rate [ From Monitor] Respiratory 20 19 13 Rate Blood Pressure 120/61 115/62 123/62 Blood Pressure [Right] O2 Sat by Pulse 96 96 96 Oximetry 12/11/19 12/11/19 12/11/19 02:30 02:45 03:00 Temperature Pulse Rate 129 H 129 H 127 H Pulse Rate [ From Monitor] Respiratory 17 18 15 Rate Blood Pressure 120/60 113/61 122/59 Blood Pressure [Right] O2 Sat by Pulse 96 96 96 Oximetry 12/11/19 12/11/19 12/11/19 03:15 03:30 03:45 Temperature Pulse Rate 128 H 129 H 130 H Pulse Rate [ From Monitor] Respiratory 16 15 21 Rate Blood Pressure 112/59 117/60 117/55 Blood Pressure [Right] O2 Sat by Pulse 96 96 97 Oximetry 12/11/19 12/11/19 12/11/19 04:00 04:15 04:30 Temperature 104.3 F H Pulse Rate 132 H 133 H 134 H Pulse Rate [ 132 H From Monitor] Respiratory 15 19 26 H Rate Blood Pressure 116/53 116/60 115/51 Blood Pressure [Right] O2 Sat by Pulse 96 96 96 Oximetry 12/11/19 12/11/19 12/11/19 04:46 05:00 05:15 Temperature Pulse Rate 134 H 133 H 133 H Pulse Rate [ From Monitor] Respiratory 20 20 20 Rate Blood Pressure 116/53 112/49 109/46 Blood Pressure [Right] O2 Sat by Pulse 96 95 96 Oximetry 12/11/19 12/11/19 12/11/19 05:30 05:36 05:45 Temperature Pulse Rate 133 H 133 H 134 H Pulse Rate [ From Monitor] Respiratory 21 13 Rate Blood Pressure 109/47 109/47 111/51 Blood Pressure [Right] O2 Sat by Pulse 96 96 96 Oximetry 12/11/19 12/11/19 12/11/19 06:00 06:16 06:30 Temperature Pulse Rate 134 H 135 H 136 H Pulse Rate [ From Monitor] Respiratory 19 21 22 Rate Blood Pressure 111/51 111/51 103/44 Blood Pressure [Right] O2 Sat by Pulse 94 94 94 Oximetry 12/11/19 12/11/19 12/11/19 06:45 07:00 08:00 Temperature 99.9 F H Pulse Rate 135 H 136 H Pulse Rate [ From Monitor] Respiratory 22 22 Rate Blood Pressure 100/45 114/54 Blood Pressure [Right] O2 Sat by Pulse 95 95 Oximetry 12/11/19 08:42 Temperature Pulse Rate 136 H Pulse Rate [ From Monitor] Respiratory Rate Blood Pressure 114/54 Blood Pressure [Right] O2 Sat by Pulse 95 Oximetry - Labs CBC & Chem 7: 12/10/19 Unknown 12/11/19 07:38 Labs: Abnormal lab results 12/10/19 12/10/19 12/10/19 Range/Units 09:45 09:45 09:45 MCHC (30-34) % Lymph % (Auto) (13.4-35.0) % Lymph # (1.2-5.4) K/mm3 Seg Neutrophils % (40.0-70.0) % Seg Neutrophils # (1.8-7.7) K/mm3 ABG pH (7.350-7.450) pH Units ABG pO2 (80.0-90.0) mm Hg ABG HCO3 (20.0-26.0) mmol/L ABG O2 Saturation (95.0-99.0) % ABG Base Excess (-2.0-3.0) mmol/L Oxyhemoglobin (95.0-99.0) % Sodium (137-145) mmol/L Potassium (3.6-5.0) mmol/L Chloride (98-107) mmol/L Carbon Dioxide (22-30) mmol/L BUN (7-17) mg/dL Creatinine (0.7-1.2) mg/dL Glucose 643 H* 639 H* (65-100) mg/dL POC Glucose (70-105) Lactic Acid 9.60 H* (0.7-2.0) mmol/L Calcium (8.4-10.2) mg/dL Phosphorus (2.5-4.5) mg/dL Ferritin (13.0-400.0) ng/mL Lactate Dehydrogenase 877 H (91-180) units/L C-Reactive Protein 30.30 H (0.00-1.30) mg/dL NT-Pro-B Natriuret Pep (0-900) pg/mL Triglycerides 232 H (2-149) mg/dL LDL Cholesterol Direct 48 L (50-130) mg/dL HDL Cholesterol 25 L (40-59) mg/dL 12/10/19 12/10/19 12/10/19 Range/Units 09:45 09:45 10:54 MCHC (30-34) % Lymph % (Auto) (13.4-35.0) % Lymph # (1.2-5.4) K/mm3 Seg Neutrophils % (40.0-70.0) % Seg Neutrophils # (1.8-7.7) K/mm3 ABG pH (7.350-7.450) pH Units ABG pO2 62.6 L (80.0-90.0) mm Hg ABG HCO3 17.3 L (20.0-26.0) mmol/L ABG O2 Saturation 90.0 L (95.0-99.0) % ABG Base Excess -7.2 L (-2.0-3.0) mmol/L Oxyhemoglobin 87.8 L (95.0-99.0) % Sodium (137-145) mmol/L Potassium (3.6-5.0) mmol/L Chloride (98-107) mmol/L Carbon Dioxide (22-30) mmol/L BUN (7-17) mg/dL Creatinine (0.7-1.2) mg/dL Glucose (65-100) mg/dL POC Glucose (70-105) Lactic Acid (0.7-2.0) mmol/L Calcium (8.4-10.2) mg/dL Phosphorus (2.5-4.5) mg/dL Ferritin 1187.0 H (13.0-400.0) ng/mL Lactate Dehydrogenase (91-180) units/L C-Reactive Protein (0.00-1.30) mg/dL NT-Pro-B Natriuret Pep 3216 H (0-900) pg/mL Triglycerides (2-149) mg/dL LDL Cholesterol Direct (50-130) mg/dL HDL Cholesterol (40-59) mg/dL 12/10/19 12/10/19 12/10/19 Range/Units 15:52 15:52 15:52 MCHC (30-34) % Lymph % (Auto) (13.4-35.0) % Lymph # (1.2-5.4) K/mm3 Seg Neutrophils % (40.0-70.0) % Seg Neutrophils # (1.8-7.7) K/mm3 ABG pH (7.350-7.450) pH Units ABG pO2 (80.0-90.0) mm Hg ABG HCO3 (20.0-26.0) mmol/L ABG O2 Saturation (95.0-99.0) % ABG Base Excess (-2.0-3.0) mmol/L Oxyhemoglobin (95.0-99.0) % Sodium (137-145) mmol/L Potassium (3.6-5.0) mmol/L Chloride (98-107) mmol/L Carbon Dioxide 19 L (22-30) mmol/L BUN 30 H (7-17) mg/dL Creatinine (0.7-1.2) mg/dL Glucose 513 H* (65-100) mg/dL POC Glucose (70-105) Lactic Acid 3.40 H* (0.7-2.0) mmol/L Calcium 8.3 L (8.4-10.2) mg/dL Phosphorus 2.40 L (2.5-4.5) mg/dL Ferritin (13.0-400.0) ng/mL Lactate Dehydrogenase (91-180) units/L C-Reactive Protein (0.00-1.30) mg/dL NT-Pro-B Natriuret Pep (0-900) pg/mL Triglycerides (2-149) mg/dL LDL Cholesterol Direct (50-130) mg/dL HDL Cholesterol (40-59) mg/dL 12/10/19 12/10/19 12/10/19 Range/Units 16:44 16:46 18:54 MCHC (30-34) % Lymph % (Auto) (13.4-35.0) % Lymph # (1.2-5.4) K/mm3 Seg Neutrophils % (40.0-70.0) % Seg Neutrophils # (1.8-7.7) K/mm3 ABG pH (7.350-7.450) pH Units ABG pO2 46.1 L (80.0-90.0) mm Hg ABG HCO3 (20.0-26.0) mmol/L ABG O2 Saturation 81.2 L (95.0-99.0) % ABG Base Excess -2.5 L (-2.0-3.0) mmol/L Oxyhemoglobin 79.7 L (95.0-99.0) % Sodium (137-145) mmol/L Potassium (3.6-5.0) mmol/L Chloride (98-107) mmol/L Carbon Dioxide (22-30) mmol/L BUN (7-17) mg/dL Creatinine (0.7-1.2) mg/dL Glucose (65-100) mg/dL POC Glucose 470 H 396 H (70-105) Lactic Acid (0.7-2.0) mmol/L Calcium (8.4-10.2) mg/dL Phosphorus (2.5-4.5) mg/dL Ferritin (13.0-400.0) ng/mL Lactate Dehydrogenase (91-180) units/L C-Reactive Protein (0.00-1.30) mg/dL NT-Pro-B Natriuret Pep (0-900) pg/mL Triglycerides (2-149) mg/dL LDL Cholesterol Direct (50-130) mg/dL HDL Cholesterol (40-59) mg/dL 12/10/19 12/10/19 12/10/19 Range/Units 19:14 20:11 20:47 MCHC (30-34) % Lymph % (Auto) (13.4-35.0) % Lymph # (1.2-5.4) K/mm3 Seg Neutrophils % (40.0-70.0) % Seg Neutrophils # (1.8-7.7) K/mm3 ABG pH (7.350-7.450) pH Units ABG pO2 (80.0-90.0) mm Hg ABG HCO3 (20.0-26.0) mmol/L ABG O2 Saturation (95.0-99.0) % ABG Base Excess (-2.0-3.0) mmol/L Oxyhemoglobin (95.0-99.0) % Sodium (137-145) mmol/L Potassium 5.1 H D (3.6-5.0) mmol/L Chloride (98-107) mmol/L Carbon Dioxide 11 L D 14 L (22-30) mmol/L BUN 34 H 32 H (7-17) mg/dL Creatinine 1.7 H 1.7 H (0.7-1.2) mg/dL Glucose 440 H 438 H (65-100) mg/dL POC Glucose 447 H (70-105) Lactic Acid (0.7-2.0) mmol/L Calcium (8.4-10.2) mg/dL Phosphorus (2.5-4.5) mg/dL Ferritin (13.0-400.0) ng/mL Lactate Dehydrogenase (91-180) units/L C-Reactive Protein (0.00-1.30) mg/dL NT-Pro-B Natriuret Pep (0-900) pg/mL Triglycerides (2-149) mg/dL LDL Cholesterol Direct (50-130) mg/dL HDL Cholesterol (40-59) mg/dL 12/10/19 12/10/19 12/10/19 Range/Units 20:47 20:59 22:07 MCHC (30-34) % Lymph % (Auto) (13.4-35.0) % Lymph # (1.2-5.4) K/mm3 Seg Neutrophils % (40.0-70.0) % Seg Neutrophils # (1.8-7.7) K/mm3 ABG pH (7.350-7.450) pH Units ABG pO2 (80.0-90.0) mm Hg ABG HCO3 (20.0-26.0) mmol/L ABG O2 Saturation (95.0-99.0) % ABG Base Excess (-2.0-3.0) mmol/L Oxyhemoglobin (95.0-99.0) % Sodium (137-145) mmol/L Potassium (3.6-5.0) mmol/L Chloride (98-107) mmol/L Carbon Dioxide (22-30) mmol/L BUN (7-17) mg/dL Creatinine (0.7-1.2) mg/dL Glucose (65-100) mg/dL POC Glucose 361 H 369 H (70-105) Lactic Acid 7.20 H* (0.7-2.0) mmol/L Calcium (8.4-10.2) mg/dL Phosphorus (2.5-4.5) mg/dL Ferritin (13.0-400.0) ng/mL Lactate Dehydrogenase (91-180) units/L C-Reactive Protein (0.00-1.30) mg/dL NT-Pro-B Natriuret Pep (0-900) pg/mL Triglycerides (2-149) mg/dL LDL Cholesterol Direct (50-130) mg/dL HDL Cholesterol (40-59) mg/dL 12/10/19 12/11/19 12/11/19 Range/Units Unknown 00:00 00:58 MCHC 35 H (30-34) % Lymph % (Auto) 8.1 L (13.4-35.0) % Lymph # 0.8 L (1.2-5.4) K/mm3 Seg Neutrophils % 89.0 H (40.0-70.0) % Seg Neutrophils # 9.2 H (1.8-7.7) K/mm3 ABG pH 7.173 L* (7.350-7.450) pH Units ABG pO2 76.9 L (80.0-90.0) mm Hg ABG HCO3 (20.0-26.0) mmol/L ABG O2 Saturation 92.7 L (95.0-99.0) % ABG Base Excess -5.1 L (-2.0-3.0) mmol/L Oxyhemoglobin 91.0 L (95.0-99.0) % Sodium (137-145) mmol/L Potassium (3.6-5.0) mmol/L Chloride (98-107) mmol/L Carbon Dioxide (22-30) mmol/L BUN (7-17) mg/dL Creatinine (0.7-1.2) mg/dL Glucose (65-100) mg/dL POC Glucose 343 H (70-105) Lactic Acid (0.7-2.0) mmol/L Calcium (8.4-10.2) mg/dL Phosphorus (2.5-4.5) mg/dL Ferritin (13.0-400.0) ng/mL Lactate Dehydrogenase (91-180) units/L C-Reactive Protein (0.00-1.30) mg/dL NT-Pro-B Natriuret Pep (0-900) pg/mL Triglycerides (2-149) mg/dL LDL Cholesterol Direct (50-130) mg/dL HDL Cholesterol (40-59) mg/dL 12/11/19 12/11/19 12/11/19 Range/Units 02:06 04:51 04:51 MCHC (30-34) % Lymph % (Auto) (13.4-35.0) % Lymph # (1.2-5.4) K/mm3 Seg Neutrophils % (40.0-70.0) % Seg Neutrophils # (1.8-7.7) K/mm3 ABG pH (7.350-7.450) pH Units ABG pO2 (80.0-90.0) mm Hg ABG HCO3 (20.0-26.0) mmol/L ABG O2 Saturation (95.0-99.0) % ABG Base Excess (-2.0-3.0) mmol/L Oxyhemoglobin (95.0-99.0) % Sodium (137-145) mmol/L Potassium 5.2 H D (3.6-5.0) mmol/L Chloride (98-107) mmol/L Carbon Dioxide 20 L (22-30) mmol/L BUN 38 H (7-17) mg/dL Creatinine 2.7 H D (0.7-1.2) mg/dL Glucose 420 H (65-100) mg/dL POC Glucose 327 H (70-105) Lactic Acid 5.00 H* (0.7-2.0) mmol/L Calcium 7.4 L (8.4-10.2) mg/dL Phosphorus (2.5-4.5) mg/dL Ferritin (13.0-400.0) ng/mL Lactate Dehydrogenase (91-180) units/L C-Reactive Protein (0.00-1.30) mg/dL NT-Pro-B Natriuret Pep (0-900) pg/mL Triglycerides (2-149) mg/dL LDL Cholesterol Direct (50-130) mg/dL HDL Cholesterol (40-59) mg/dL 12/11/19 12/11/19 12/11/19 Range/Units 05:48 07:03 07:38 MCHC (30-34) % Lymph % (Auto) (13.4-35.0) % Lymph # (1.2-5.4) K/mm3 Seg Neutrophils % (40.0-70.0) % Seg Neutrophils # (1.8-7.7) K/mm3 ABG pH 7.201 L (7.350-7.450) pH Units ABG pO2 66.9 L (80.0-90.0) mm Hg ABG HCO3 (20.0-26.0) mmol/L ABG O2 Saturation 92.1 L (95.0-99.0) % ABG Base Excess -7.3 L (-2.0-3.0) mmol/L Oxyhemoglobin 90.3 L (95.0-99.0) % Sodium 146 H (137-145) mmol/L Potassium (3.6-5.0) mmol/L Chloride 109.6 H (98-107) mmol/L Carbon Dioxide 14 L (22-30) mmol/L BUN 38 H (7-17) mg/dL Creatinine 2.5 H (0.7-1.2) mg/dL Glucose 389 H (65-100) mg/dL POC Glucose 347 H (70-105) Lactic Acid (0.7-2.0) mmol/L Calcium 7.6 L (8.4-10.2) mg/dL Phosphorus (2.5-4.5) mg/dL Ferritin (13.0-400.0) ng/mL Lactate Dehydrogenase (91-180) units/L C-Reactive Protein (0.00-1.30) mg/dL NT-Pro-B Natriuret Pep (0-900) pg/mL Triglycerides (2-149) mg/dL LDL Cholesterol Direct (50-130) mg/dL HDL Cholesterol (40-59) mg/dL 12/11/19 12/11/19 Range/Units 07:38 07:48 MCHC (30-34) % Lymph % (Auto) (13.4-35.0) % Lymph # (1.2-5.4) K/mm3 Seg Neutrophils % (40.0-70.0) % Seg Neutrophils # (1.8-7.7) K/mm3 ABG pH (7.350-7.450) pH Units ABG pO2 (80.0-90.0) mm Hg ABG HCO3 (20.0-26.0) mmol/L ABG O2 Saturation (95.0-99.0) % ABG Base Excess (-2.0-3.0) mmol/L Oxyhemoglobin (95.0-99.0) % Sodium (137-145) mmol/L Potassium (3.6-5.0) mmol/L Chloride (98-107) mmol/L Carbon Dioxide (22-30) mmol/L BUN (7-17) mg/dL Creatinine (0.7-1.2) mg/dL Glucose (65-100) mg/dL POC Glucose 343 H (70-105) Lactic Acid 9.80 H* (0.7-2.0) mmol/L Calcium (8.4-10.2) mg/dL Phosphorus (2.5-4.5) mg/dL Ferritin (13.0-400.0) ng/mL Lactate Dehydrogenase (91-180) units/L C-Reactive Protein (0.00-1.30) mg/dL NT-Pro-B Natriuret Pep (0-900) pg/mL Triglycerides (2-149) mg/dL LDL Cholesterol Direct (50-130) mg/dL HDL Cholesterol (40-59) mg/dL HEART Score - HEART Score Troponin: Troponin T 0.047 ng/mL (0.00-0.029) H 12/10/19 09:45
[2019-12-11] MEDS ORDERED: SODIUM BICARBONATE 100 MEQ in WATER FOR INJECTION (PF) 1,000 ML IV SCH (11:00)
[2019-12-11] MEDS ORDERED: POTASSIUM PHOSPHATE 30 MMOL in SODIUM CHLORIDE 0.9% 500 ML 500 ML IV ONE (11:00)
[2019-12-11] MEDS: INSULIN REGULAR, HUMAN 100 UNITS in SODIUM CHLORIDE 0.9% 99 ML IV SCH (11:35)
--- NOTE | 2019-12-11 11:35 | XRay Report ---
CHEST 1 VIEW 12/11/2019 10:28 AM INDICATION / CLINICAL INFORMATION: POSSIBLE ASPIRATION. COMPARISON: 12/10/2019 FINDINGS: SUPPORT DEVICES: Stable satisfactory device positioning. HEART / MEDIASTINUM: Stable. LUNGS / PLEURA: Stable hazy bilateral mid and lower lung opacities. No pneumothorax. ADDITIONAL FINDINGS: No significant additional findings. IMPRESSION: 1. No significant change from the prior exam. Signer Name: Kulwant Antoine MD Signed: 12/11/2019 11:31 AM Workstation Name: [id number]
--- NOTE | 2019-12-11 12:06 | Consultation ---
History of Present Illness Consult date: 12/11/19 Consult reason: cardiac arrest History of present illness: This is a 49-year old woman admitted with fever, hypoxemia and abnormal chest x- ray with evidence of bilateral infiltrates. She is currently intubated on the ventilator, undergoing further evaluation for suspected coronavirus infection. Overnight, patient developed PEA arrest, underwent ACLS protocol in the CCU. Currently on multiple pressors for support. There were no report of ventricular tachycardia or ventricular fibrillation. There is no history of coronary artery disease. Presenting ECG is sinus tachycardia, no acute ischemic changes. Medications and Allergies Allergies Allergy/AdvReac Type Severity Reaction Status Date / Time No Known Allergies Allergy Verified 08/23/19 02:58 Home Medications Medication Instructions Recorded Confirmed Last Taken Type Amoxicillin/Potassium Clav 1 each PO BID #14 tablet 08/26/19 Unknown Rx [Augmentin 875-125 Tablet] Insulin NPH/Regular [NovoLIN 70/30] 15 unit SUB-Q BIDDIAB #1 vial 08/26/19 Unknown Rx polyethylene glycoL 3350 [Miralax 17 gm PO QDAY #30 powd.pack 08/26/19 Unknown Rx 3350] Active Meds: Active Medications Acetaminophen (Tylenol) 650 mg PO Q4H PRN PRN Reason: Pain, Mild (1-3) Last Admin: 12/11/19 04:24 Dose: 650 mg Documented by: Dextrose (D50w (25gm) Syringe) 0 ml IV Q30MIN PRN; Protocol PRN Reason: Hypoglycemia Hydrophilic Ointment (Vaseline Lip Therapy) 1 applic TP Q2HR PRN PRN Reason: Dry Lips Midazolam HCl 100 mg/ Sodium (Chloride) 100 mls @ 2 mls/hr IV TITR ONE; Protocol Stop: 12/12/19 11:59 Last Titration: 12/10/19 22:10 Dose: 0 mg/hr, 0 mls/hr Documented by: Norepinephrine (Levophed Drip 4 Mg/Ns 250 Ml) 4 mg in 250 mls @ 7.5 mls/hr IV TITR LATA; Protocol Last Admin: 12/11/19 11:30 Dose: 30 mcg/min, 112.5 mls/hr Documented by: Propofol (Diprivan 10 Mg/Ml) 1,000 mg in 100 mls @ 2.19 mls/hr IV TITR LATA; Protocol Last Titration: 05/20/20 22:11 Dose: 0 mcg/kg/min, 0 mls/hr Documented by: Azithromycin 500 mg/ Sodium (Chloride) 250 mls @ 250 mls/hr IV Q24HR LATA; Protocol Insulin Human Regular 100 (units/ Sodium Chloride) 100 mls @ 1 mls/hr IV TITR LATA; Protocol Last Admin: 12/11/19 11:35 Dose: 6 units/hr, 6 mls/hr Documented by: Ceftriaxone Sodium (Rocephin/Ns 2 Gm/100 Ml) 2 gm in 100 mls @ 200 mls/hr IV Q24HR LATA Vasopressin 20 unit/ Sodium (Chloride) 101 mls @ 9.09 mls/hr IV TITR LATA; Protocol Last Admin: 12/11/19 06:23 Dose: 0.03 units/min, 9.09 mls/hr Documented by: Epinephrine 8 mg/ Sodium (Chloride) 250 mls @ 3.75 mls/hr IV TITR LATA; Protocol Last Titration: 12/11/19 09:02 Dose: 10 mcg/min, 18.75 mls/hr Documented by: Phenylephrine HCl 100 mg/ (Sodium Chloride) 100 mls @ 3 mls/hr IV TITR LATA; Protocol Last Admin: 12/11/19 09:29 Dose: 400 mcg/min, 24 mls/hr Documented by: Potassium Phosphate 30 mmol/ (Sodium Chloride) 510 mls @ 85 mls/hr IV ONCE ONE Stop: 12/11/19 16:59 Sodium Bicarbonate 100 meq/ (Sterile Water) 1,100 mls @ 75 mls/hr IV DIRECT LATA Last Admin: 12/11/19 11:02 Dose: 75 mls/hr Documented by: Midazolam HCl (Versed) 2 mg IV Q10MIN PRN PRN Reason: Sedation Multi-Ingred Cream/Lotion/Oil/Oint (Artificial Tears Ophth Oint) 1 applic OU Q4HR PRN PRN Reason: Dry Eye(s) Physical Examination Vital Signs Pulse Resp BP Pulse Ox 138 H 26 H 150/77 56 L 12/10/19 09:44 12/10/19 09:44 12/10/19 09:44 12/10/19 09:44 General appearance: other (intubated on the vent) Cardiac: Positive: Reg Rate and Rhythm Results 12/10/19 Unknown 12/11/19 07:38 CBC 12/10/19 Range/Units Unknown WBC 10.3 (4.5-11.0) K/mm3 RBC 4.40 (3.65-5.03) M/mm3 Hgb 13.2 (10.1-14.3) gm/dl Hct 38.2 (30.3-42.9) % Plt Count 315 (140-440) K/mm3 Lymph # 0.8 L (1.2-5.4) K/mm3 [place] # 0.3 (0.0-0.8) K/mm3 Eos # 0.0 (0.0-0.4) K/mm3 Baso # 0.0 (0.0-0.1) K/mm3 Comprehensive Metabolic Panel 12/10/19 12/10/19 12/10/19 Range/Units 15:52 19:14 20:47 Sodium 141 143 142 (137-145) mmol/L Potassium 4.0 5.1 H D 3.9 D (3.6-5.0) mmol/L Chloride 103.6 105.3 106.4 (98-107) mmol/L Carbon Dioxide 19 L 11 L D 14 L (22-30) mmol/L BUN 30 H 34 H 32 H (7-17) mg/dL Creatinine 1.2 1.7 H 1.7 H (0.7-1.2) mg/dL Glucose 513 H* 440 H 438 H (65-100) mg/dL Calcium 8.3 L 9.1 8.4 (8.4-10.2) mg/dL 12/11/19 12/11/19 Range/Units 04:51 07:38 Sodium 145 146 H (137-145) mmol/L Potassium 5.2 H D 4.8 (3.6-5.0) mmol/L Chloride 107.0 109.6 H (98-107) mmol/L Carbon Dioxide 20 L 14 L (22-30) mmol/L BUN 38 H 38 H (7-17) mg/dL Creatinine 2.7 H D 2.5 H (0.7-1.2) mg/dL Glucose 420 H 389 H (65-100) mg/dL Calcium 7.4 L 7.6 L (8.4-10.2) mg/dL Assessment and Plan - Patient Problems (1) Respiratory failure Current Visit: Yes Status: Acute (2) Uncontrolled diabetes mellitus Current Visit: No Status: Acute Qualifiers: Qualified Code(s): E11.65 - Type 2 diabetes mellitus with hyperglycemia
--- NOTE | 2019-12-11 12:11 | Event Note ---
Date: 12/11/19 Patient admitted yesterday with hypoxic respiratory failure. First notified yesterday evening with abnormal ABG from [facility]. Gave instructions on changes and asked for repeat ABG at 2029. No further calls until 629 this. Per the nurse at that time, patient had cardiac arrest, was unresponsive and maxed on 3 pressors. Patient subsequently coded several times after that but able to achieve ROSC. Primary care attending spoke with family this am. Currently patient has an O2 sat of 83% on 100% and 18 of PEEP. Last blood gas showed a PaO2 of 66. She is in worsening renal failure and long with metabolic encephalopathy. She likely has had anoxic brain injury from persistently low sats despite maximal efforts plus multiple codes. Her overall prognosis is very poor. CHANDRAKANT has spoken to the family. At this time will continue supportive measures. She is too unstable for proning at this moment and her COVID test has not come back yet. G
--- NOTE | 2019-12-11 13:17 | Consultation ---
History of Present Illness - Reason for Consult Consult date: 12/11/19 sepsis Requesting physician: BEBO GOODEN - History of Present Illness 49 years old female with history of hypertension, diabetes, admitted on due to 24 hours history of generalized weakness, unable to get out of bed. Patient currently is intubated unable to provide history. I called her family members, spoke with her sister, who does not live with with patient but reports that she was sick for about a week with generalized weakness. Sister reported she had some cough but it was minimal. 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 She then moved to her [employer] because she was sick, they were taking care of her until she became sick and br ought her to the hospital. She came from [place] 15 years ago. She is single, no children. Only family members are her sister and nephew. Per sister no alcohol tobacco or drug abuse. On arrival, temperature 102.7, went up to 104, HR 138, RR 26, O2 sat 56%, BP 150/77. Initial WBC 10.3. Hemoglobin 13.2. Platelets 315. Glucose 643. D-dimer 1063. Lactate 9.6. AST 75. CRP 30. Ferritin 1187. Procalcitonin 0.5. Urinalysis negative. Chest x-ray extensive bilateral consolidation. Blood culture 12/10/2019 no growth so far. On arrival to the ED patient was found severely hypoxemic and underwent intubation. Unfortunately, overnight patient developed PEA cardiac arrest and was resuscita jumana at least 3 times in the ICU. She is currently intubated, on multiple pressors. Review of Systems: Unable to obtain Medications and Allergies Allergies Allergy/AdvReac Type Severity Reaction Status Date / Time No Known Allergies Allergy Verified 08/23/19 02:58 Home Medications Medication Instructions Recorded Confirmed Last Taken Type Amoxicillin/Potassium Clav 1 each PO BID #14 tablet 08/26/19 Unknown Rx [Augmentin 875-125 Tablet] Insulin NPH/Regular [NovoLIN 70/30] 15 unit SUB-Q BIDDIAB #1 vial 08/26/19 Unknown Rx polyethylene glycoL 3350 [Miralax 17 gm PO QDAY #30 powd.pack 08/26/19 Unknown Rx 3350] Active Meds: Active Medications Acetaminophen (Tylenol) 650 mg PO Q4H PRN PRN Reason: Pain, Mild (1-3) Last Admin: 12/11/19 04:24 Dose: 650 mg Documented by: Dextrose (D50w (25gm) Syringe) 0 ml IV Q30MIN PRN; Protocol PRN Reason: Hypoglycemia Hydrophilic Ointment (Vaseline Lip Therapy) 1 applic TP Q2HR PRN PRN Reason: Dry Lips Midazolam HCl 100 mg/ Sodium (Chloride) 100 mls @ 2 mls/hr IV TITR ONE; Protocol Stop: 12/12/19 11:59 Last Titration: 12/10/19 22:10 Dose: 0 mg/hr, 0 mls/hr Documented by: Norepinephrine (Levophed Drip 4 Mg/Ns 250 Ml) 4 mg in 250 mls @ 7.5 mls/hr IV TITR LATA; Protocol Last Admin: 12/11/19 11:30 Dose: 30 mcg/min, 112.5 mls/hr Documented by: Propofol (Diprivan 10 Mg/Ml) 1,000 mg in 100 mls @ 2.19 mls/hr IV TITR LATA; Protocol Last Titration: 12/10/19 22:11 Dose: 0 mcg/kg/min, 0 mls/hr Documented by: Azithromycin 500 mg/ Sodium (Chloride) 250 mls @ 250 mls/hr IV Q24HR LATA; Protocol Last Admin: 12/11/19 12:58 Dose: 250 mls/hr Documented by: Insulin Human Regular 100 (units/ Sodium Chloride) 100 mls @ 1 mls/hr IV TITR LATA; Protocol Last Titration: 12/11/19 12:30 Dose: 5 units/hr, 5 mls/hr Documented by: Ceftriaxone Sodium (Rocephin/Ns 2 Gm/100 Ml) 2 gm in 100 mls @ 200 mls/hr IV Q24HR LATA Last Admin: 12/11/19 12:58 Dose: 200 mls/hr Documented by: Vasopressin 20 unit/ Sodium (Chloride) 101 mls @ 9.09 mls/hr IV TITR LATA; Protocol Last Admin: 12/11/19 06:23 Dose: 0.03 units/min, 9.09 mls/hr Documented by: Epinephrine 8 mg/ Sodium (Chloride) 250 mls @ 3.75 mls/hr IV TITR LATA; Protocol Last Titration: 12/11/19 09:02 Dose: 10 mcg/min, 18.75 mls/hr Documented by: Phenylephrine HCl 100 mg/ (Sodium Chloride) 100 mls @ 3 mls/hr IV TITR LATA; Pr otocol Last Admin: 12/11/19 09:29 Dose: 400 mcg/min, 24 mls/hr Documented by: Potassium Phosphate 30 mmol/ (Sodium Chloride) 510 mls @ 85 mls/hr IV ONCE ONE Stop: 12/11/19 16:59 Last Admin: 12/11/19 12:59 Dose: 85 mls/hr Documented by: Sodium Bicarbonate 100 meq/ (Sterile Water) 1,100 mls @ 75 mls/hr IV DIRECT LATA Last Admin: 12/11/19 11:02 Dose: 75 mls/hr Documented by: Midazolam HCl (Versed) 2 mg IV Q10MIN PRN PRN Reason: Sedation Multi-Ingred Cream/Lotion/Oil/Oint (Artificial Tears Ophth Oint) 1 applic OU Q4HR PRN PRN Reason: Dry Eye(s) Physical Examination - Physical Exam Narrative exam: General appearance: Lethargic intubated in no acute distress Eyes: anicteric sclerae, moist conjunctivae pupils with slow reaction HENT: Atraumatic; oropharynx with endotracheal tube Lungs: Diminished bilaterally CV: RRR Abdomen: Soft, non-tender Extremities: no edema, no cyanosis Skin: No rash. Psych: Lethargic Neuro: Lethargic - Constitutional Vitals: Vital Signs Temp Pulse Resp BP Pulse Ox 99.9 F H 139 H 22 114/54 95 12/11/19 08:00 12/11/19 11:35 12/11/19 07:00 12/11/19 11:35 12/11/19 11:35 Temperature -Last 24 Hours Temperature 99.9 F Temperature 104.3 F Temperature 103.5 F Temperature 102.3 F Temperature 102.3 F Temperature 102.7 F Results - Labs CBC & Chem 7: 12/10/19 Unknown 12/11/19 07:38 Labs: Abnormal lab results 12/10/19 12/10/19 12/10/19 Range/Units 15:52 15:52 15:52 ABG pH (7.350-7.450) pH Units ABG pO2 (80.0-90.0) mm Hg ABG O2 Saturation (95.0-99.0) % ABG Base Excess (-2.0-3.0) mmol/L Oxyhemoglobin (95.0-99.0) % Sodium (137-145) mmol/L Potassium (3.6-5.0) mmol/L Chloride (98-107) mmol/L Carbon Dioxide 19 L (22-30) mmol/L BUN 30 H (7-17) mg/dL Creatinine (0.7-1.2) mg/dL Glucose 513 H* (65-100) mg/dL POC Glucose (70-105) Lactic Acid 3.40 H* (0.7-2.0) mmol/L Calcium 8.3 L (8.4-10.2) mg/dL Phosphorus 2.40 L (2.5-4.5) mg/dL 12/10/19 12/10/19 12/10/19 Range/Units 16:44 16:46 18:54 ABG pH (7.350-7.450) pH Units ABG pO2 46.1 L (80.0-90.0) mm Hg ABG O2 Saturation 81.2 L (95.0-99.0) % ABG Base Excess -2.5 L (-2.0-3.0) mmol/L Oxyhemoglobin 79.7 L (95.0-99.0) % Sodium (137-145) mmol/L Potassium (3.6-5.0) mmol/L Chloride (98-107) mmol/L Carbon Dioxide (22-30) mmol/L BUN (7-17) mg/dL Creatinine (0.7-1.2) mg/dL Glucose (65-100) mg/dL POC Glucose 470 H 396 H (70-105) Lactic Acid (0.7-2.0) mmol/L Calcium (8.4-10.2) mg/dL Phosphorus (2.5-4.5) mg/dL 12/10/19 12/10/19 12/10/19 Range/Units 19:14 20:11 20:47 ABG pH (7.350-7.450) pH Units ABG pO2 (80.0-90.0) mm Hg ABG O2 Saturation (95.0-99.0) % ABG Base Excess (-2.0-3.0) mmol/L Oxyhemoglobin (95.0-99.0) % Sodium (137-145) mmol/L Potassium 5.1 H D (3.6-5.0) mmol/L Chloride (98-107) mmol/L Carbon Dioxide 11 L D 14 L (22-30) mmol/L BUN 34 H 32 H (7-17) mg/dL Creatinine 1.7 H 1.7 H (0.7-1.2) mg/dL Glucose 440 H 438 H (65-100) mg/dL POC Glucose 447 H (70-105) Lactic Acid (0.7-2.0) mmol/L Calcium (8.4-10.2) mg/dL Phosphorus (2.5-4.5) mg/dL 12/10/19 12/10/19 12/10/19 Range/Units 20:47 20:59 22:07 ABG pH (7.350-7.450) pH Units ABG pO2 (80.0-90.0) mm Hg ABG O2 Saturation (95.0-99.0) % ABG Base Excess (-2.0-3.0) mmol/L Oxyhemoglobin (95.0-99.0) % Sodium (137-145) mmol/L Potassium (3.6-5.0) mmol/L Chloride (98-107) mmol/L Carbon Dioxide (22-30) mmol/L BUN (7-17) mg/dL Creatinine (0.7-1.2) mg/dL Glucose (65-100) mg/dL POC Glucose 361 H 369 H (70-105) Lactic Acid 7.20 H* (0.7-2.0) mmol/L Calcium (8.4-10.2) mg/dL Phosphorus (2.5-4.5) mg/dL 12/11/19 12/11/19 12/11/19 Range/Units 00:00 00:58 02:06 ABG pH 7.173 L* (7.350-7.450) pH Units ABG pO2 76.9 L (80.0-90.0) mm Hg ABG O2 Saturation 92.7 L (95.0-99.0) % ABG Base Excess -5.1 L (-2.0-3.0) mmol/L Oxyhemoglobin 91.0 L (95.0-99.0) % Sodium (137-145) mmol/L Potassium (3.6-5.0) mmol/L Chloride (98-107) mmol/L Carbon Dioxide (22-30) mmol/L BUN (7-17) mg/dL Creatinine (0.7-1.2) mg/dL Glucose (65-100) mg/dL POC Glucose 343 H 327 H (70-105) Lactic Acid (0.7-2.0) mmol/L Calcium (8.4-10.2) mg/dL Phosphorus (2.5-4.5) mg/dL 12/11/19 12/11/19 12/11/19 Range/Units 04:51 04:51 05:48 ABG pH 7.201 L (7.350-7.450) pH Units ABG pO2 66.9 L (80.0-90.0) mm Hg ABG O2 Saturation 92.1 L (95.0-99.0) % ABG Base Excess -7.3 L (-2.0-3.0) mmol/L Oxyhemoglobin 90.3 L (95.0-99.0) % Sodium (137-145) mmol/L Potassium 5.2 H D (3.6-5.0) mmol/L Chloride (98-107) mmol/L Carbon Dioxide 20 L (22-30) mmol/L BUN 38 H (7-17) mg/dL Creatinine 2.7 H D (0.7-1.2) mg/dL Glucose 420 H (65-100) mg/dL POC Glucose (70-105) Lactic Acid 5.00 H* (0.7-2.0) mmol/L Calcium 7.4 L (8.4-10.2) mg/dL Phosphorus (2.5-4.5) mg/dL 12/11/19 12/11/19 12/11/19 Range/Units 07:03 07:38 07:38 ABG pH (7.350-7.450) pH Units ABG pO2 (80.0-90.0) mm Hg ABG O2 Saturation (95.0-99.0) % ABG Base Excess (-2.0-3.0) mmol/L Oxyhemoglobin (95.0-99.0) % Sodium 146 H (137-145) mmol/L Potassium (3.6-5.0) mmol/L Chloride 109.6 H (98-107) mmol/L Carbon Dioxide 14 L (22-30) mmol/L BUN 38 H (7-17) mg/dL Creatinine 2.5 H (0.7-1.2) mg/dL Glucose 389 H (65-100) mg/dL POC Glucose 347 H (70-105) Lactic Acid 9.80 H* (0.7-2.0) mmol/L Calcium 7.6 L (8.4-10.2) mg/dL Phosphorus (2.5-4.5) mg/dL 12/11/19 12/11/19 12/11/19 Range/Units 07:48 10:55 12:38 ABG pH (7.350-7.450) pH Units ABG pO2 (80.0-90.0) mm Hg ABG O2 Saturation (95.0-99.0) % ABG Base Excess (-2.0-3.0) mmol/L Oxyhemoglobin (95.0-99.0) % Sodium (137-145) mmol/L Potassium (3.6-5.0) mmol/L Chloride (98-107) mmol/L Carbon Dioxide (22-30) mmol/L BUN (7-17) mg/dL Creatinine (0.7-1.2) mg/dL Glucose (65-100) mg/dL POC Glucose 343 H 261 H 235 H (70-105) Lactic Acid (0.7-2.0) mmol/L Calcium (8.4-10.2) mg/dL Phosphorus (2.5-4.5) mg/dL Assessment and Plan Cultures: Blood culture 12/10/2019 no growth so far Assessment: 49 years old female with history of hypertension, diabetes, admitted on 12/10/2019 due to a week history of generalized weakness, unable to get out of bed, to be severely hypotensive and hypoxemic: Severe sepsis with septic shock status post PEA arrest: Currently on 3 pressors, elevated lactic acid; likely due to severe bilateral pneumonia. Urinalysis negative. Blood cultures no growth so far. Bilateral multifocal pneumonia: Unclear etiology, possible COVID vs bacterial. Procalcitonin slightly elevated. Chest x-ray extensive bilateral consolidation. Acute hypoxemic respiratory failure: Currently intubated. Diabetes mellitus: Uncontrolled. Acute encephalopathy: Likely due to sepsis and possible axial brain injury Recommendations: Follow-up blood cultures Obtain sputum cultures COVID test sent, pending Stop ceftriaxone Start cefepime 2 g IV every 12 hours Continue azithromycin for now Start metronidazole 500 mg IV every 8 hours Start fluconazole 200 g IV once a day Grim discussed with family members Will follow. Yanique Santos MD Infectious Diseases [facility] M [phone]
[2019-12-11] MEDS ORDERED: HEPARIN 5,000 UNIT/1 ML VIAL SUB-Q SCH (13:45)
[2019-12-11] MEDS ORDERED: PANTOPRAZOLE 40 MG INJ IV SCH (14:00)
[2019-12-11] MEDS ORDERED: FLUCONAZOLE 200 MG 200 MG/100 ML BAG IV SCH (14:47)
[2019-12-11] MEDS ORDERED: metroNIDAZOLE/NS 500 MG/100 ML 500 MG/100 ML BAG IV SCH (15:00)
[2019-12-11 15:13] VITALS: BP 71/39
--- NOTE | 2019-12-11 15:17 | Progress Note ---
Subjective Date of service: 12/11/19 Interval history: reviewed over multiple notes. Dr. 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) and equipment issues- otherwise would do EEG today- I 'll do my best to get info on this as we likwely need CT of head once stable andf bnot subject to arrest being on pressors etc Thanks I plan to actively follow up Objective - Vital Sign Vital Signs - 12hr 12/11/19 12/11/19 12/11/19 03:15 03:30 03:45 Temperature Pulse Rate 128 H 129 H 130 H Pulse Rate [ From Monitor] Respiratory 16 15 21 Rate Blood Pressure 112/59 117/60 117/55 O2 Sat by Pulse 96 96 97 Oximetry 12/11/19 12/11/19 12/11/19 04:00 04:15 04:30 Temperature 104.3 F H Pulse Rate 132 H 133 H 134 H Pulse Rate [ 132 H From Monitor] Respiratory 15 19 26 H Rate Blood Pressure 116/53 116/60 115/51 O2 Sat by Pulse 96 96 96 Oximetry 12/11/19 12/11/19 12/11/19 04:46 05:00 05:15 Temperature Pulse Rate 134 H 133 H 133 H Pulse Rate [ From Monitor] Respiratory 20 20 20 Rate Blood Pressure 116/53 112/49 109/46 O2 Sat by Pulse 96 95 96 Oximetry 12/11/19 12/11/19 12/11/19 05:30 05:36 05:45 Temperature Pulse Rate 133 H 133 H 134 H Pulse Rate [ From Monitor] Respiratory 21 13 Rate Blood Pressure 109/47 109/47 111/51 O2 Sat by Pulse 96 96 96 Oximetry 12/11/19 12/11/19 12/11/19 06:00 06:16 06:30 Temperature Pulse Rate 134 H 135 H 136 H Pulse Rate [ From Monitor] Respiratory 19 21 22 Rate Blood Pressure 111/51 111/51 103/44 O2 Sat by Pulse 94 94 94 Oximetry 12/11/19 12/11/19 12/11/19 06:45 07:00 08:00 Temperature 99.9 F H Pulse Rate 135 H 136 H Pulse Rate [ From Monitor] Respiratory 22 22 Rate Blood Pressure 100/45 114/54 O2 Sat by Pulse 95 95 Oximetry 12/11/19 12/11/19 12/11/19 08:42 11:35 12:00 Temperature 104.0 F H Pulse Rate 136 H 139 H Pulse Rate [ From Monitor] Respiratory Rate Blood Pressure 114/54 114/54 O2 Sat by Pulse 95 95 Oximetry - Laboratory Findings CBC and BMP: 12/10/19 Unknown 12/11/19 07:38 Abnormal Lab Findings: Abnormal Labs 12/10/19 12/10/19 12/10/19 09:45 09:45 09:45 MCHC Lymph % (Auto) Lymph # Seg Neutrophils % Seg Neutrophils # APTT 21.3 L D-Dimer 1063.15 H ABG pH ABG pO2 ABG HCO3 ABG O2 Saturation ABG Base Excess Oxyhemoglobin Sodium Potassium Chloride 95.1 L Carbon Dioxide 14 L BUN 26 H Creatinine Glucose 643 H* POC Glucose Lactic Acid 9.60 H* Calcium Phosphorus Ferritin AST 75 H Alkaline Phosphatase 162 H Lactate Dehydrogenase Troponin T 0.047 H C-Reactive Protein NT-Pro-B Natriuret Pep Albumin 3.5 L Triglycerides 232 H LDL Cholesterol Direct 48 L HDL Cholesterol 25 L Coronavirus (PCR) 12/10/19 12/10/19 12/10/19 09:45 09:45 09:45 MCHC Lymph % (Auto) Lymph # Seg Neutrophils % Seg Neutrophils # APTT D-Dimer ABG pH ABG pO2 ABG HCO3 ABG O2 Saturation ABG Base Excess Oxyhemoglobin Sodium Potassium Chloride Carbon Dioxide BUN Creatinine Glucose 639 H* POC Glucose Lactic Acid Calcium Phosphorus Ferritin 1187.0 H AST Alkaline Phosphatase Lactate Dehydrogenase 877 H Troponin T C-Reactive Protein 30.30 H NT-Pro-B Natriuret Pep 3216 H Albumin Triglycerides LDL Cholesterol Direct HDL Cholesterol Coronavirus (PCR) 12/10/19 12/10/19 12/10/19 10:54 15:52 15:52 MCHC Lymph % (Auto) Lymph # Seg Neutrophils % Seg Neutrophils # APTT D-Dimer ABG pH ABG pO2 62.6 L ABG HCO3 17.3 L ABG O2 Saturation 90.0 L ABG Base Excess -7.2 L Oxyhemoglobin 87.8 L Sodium Potassium Chloride Carbon Dioxide BUN Creatinine Glucose POC Glucose Lactic Acid 3.40 H* Calcium Phosphorus 2.40 L Ferritin AST Alkaline Phosphatase Lactate Dehydrogenase Troponin T C-Reactive Protein NT-Pro-B Natriuret Pep Albumin Triglycerides LDL Cholesterol Direct HDL Cholesterol Coronavirus (PCR) 12/10/19 12/10/19 12/10/19 15:52 16:44 16:46 MCHC Lymph % (Auto) Lymph # Seg Neutrophils % Seg Neutrophils # APTT D-Dimer ABG pH ABG pO2 46.1 L ABG HCO3 ABG O2 Saturation 81.2 L ABG Base Excess -2.5 L Oxyhemoglobin 79.7 L Sodium Potassium Chloride Carbon Dioxide 19 L BUN 30 H Creatinine Glucose 513 H* POC Glucose 470 H Lactic Acid Calcium 8.3 L Phosphorus Ferritin AST Alkaline Phosphatase Lactate Dehydrogenase Troponin T C-Reactive Protein NT-Pro-B Natriuret Pep Albumin Triglycerides LDL Cholesterol Direct HDL Cholesterol Coronavirus (PCR) 12/10/19 12/10/19 12/10/19 18:54 19:14 20:11 MCHC Lymph % (Auto) Lymph # Seg Neutrophils % Seg Neutrophils # APTT D-Dimer ABG pH ABG pO2 ABG HCO3 ABG O2 Saturation ABG Base Excess Oxyhemoglobin Sodium Potassium 5.1 H D Chloride Carbon Dioxide 11 L D BUN 34 H Creatinine 1.7 H Glucose 440 H POC Glucose 396 H 447 H Lactic Acid Calcium Phosphorus Ferritin AST Alkaline Phosphatase Lactate Dehydrogenase Troponin T C-Reactive Protein NT-Pro-B Natriuret Pep Albumin Triglycerides LDL Cholesterol Direct HDL Cholesterol Coronavirus (PCR) 12/10/19 12/10/19 12/10/19 20:47 20:47 20:59 MCHC Lymph % (Auto) Lymph # Seg Neutrophils % Seg Neutrophils # APTT D-Dimer ABG pH ABG pO2 ABG HCO3 ABG O2 Saturation ABG Base Excess Oxyhemoglobin Sodium Potassium Chloride Carbon Dioxide 14 L BUN 32 H Creatinine 1.7 H Glucose 438 H POC Glucose 361 H Lactic Acid 7.20 H* Calcium Phosphorus Ferritin AST Alkaline Phosphatase Lactate Dehydrogenase Troponin T C-Reactive Protein NT-Pro-B Natriuret Pep Albumin Triglycerides LDL Cholesterol Direct HDL Cholesterol Coronavirus (PCR) 12/10/19 12/10/19 12/11/19 22:07 Unknown 00:00 MCHC 35 H Lymph % (Auto) 8.1 L Lymph # 0.8 L Seg Neutrophils % 89.0 H Seg Neutrophils # 9.2 H APTT D-Dimer ABG pH ABG pO2 ABG HCO3 ABG O2 Saturation ABG Base Excess Oxyhemoglobin Sodium Potassium Chloride Carbon Dioxide BUN Creatinine Glucose POC Glucose 369 H 343 H Lactic Acid Calcium Phosphorus Ferritin AST Alkaline Phosphatase Lactate Dehydrogenase Troponin T C-Reactive Protein NT-Pro-B Natriuret Pep Albumin Triglycerides LDL Cholesterol Direct HDL Cholesterol Coronavirus (PCR) 12/11/19 12/11/19 12/11/19 00:58 02:06 04:51 MCHC Lymph % (Auto) Lymph # Seg Neutrophils % Seg Neutrophils # APTT D-Dimer ABG pH 7.173 L* ABG pO2 76.9 L ABG HCO3 ABG O2 Saturation 92.7 L ABG Base Excess -5.1 L Oxyhemoglobin 91.0 L Sodium Potassium 5.2 H D Chloride Carbon Dioxide 20 L BUN 38 H Creatinine 2.7 H D Glucose 420 H POC Glucose 327 H Lactic Acid Calcium 7.4 L Phosphorus Ferritin AST Alkaline Phosphatase Lactate Dehydrogenase Troponin T C-Reactive Protein NT-Pro-B Natriuret Pep Albumin Triglycerides LDL Cholesterol Direct HDL Cholesterol Coronavirus (PCR) 12/11/19 12/11/19 12/11/19 04:51 05:48 07:03 MCHC Lymph % (Auto) Lymph # Seg Neutrophils % Seg Neutrophils # APTT D-Dimer ABG pH 7.201 L ABG pO2 66.9 L ABG HCO3 ABG O2 Saturation 92.1 L ABG Base Excess -7.3 L Oxyhemoglobin 90.3 L Sodium Potassium Chloride Carbon Dioxide BUN Creatinine Glucose POC Glucose 347 H Lactic Acid 5.00 H* Calcium Phosphorus Ferritin AST Alkaline Phosphatase Lactate Dehydrogenase Troponin T C-Reactive Protein NT-Pro-B Natriuret Pep Albumin Triglycerides LDL Cholesterol Direct HDL Cholesterol Coronavirus (PCR) 12/11/19 12/11/19 12/11/19 07:38 07:38 07:48 MCHC Lymph % (Auto) Lymph # Seg Neutrophils % Seg Neutrophils # APTT D-Dimer ABG pH ABG pO2 ABG HCO3 ABG O2 Saturation ABG Base Excess Oxyhemoglobin Sodium 146 H Potassium Chloride 109.6 H Carbon Dioxide 14 L BUN 38 H Creatinine 2.5 H Glucose 389 H POC Glucose 343 H Lactic Acid 9.80 H* Calcium 7.6 L Phosphorus Ferritin AST Alkaline Phosphatase Lactate Dehydrogenase Troponin T C-Reactive Protein NT-Pro-B Natriuret Pep Albumin Triglycerides LDL Cholesterol Direct HDL Cholesterol Coronavirus (PCR) 12/11/19 12/11/19 12/11/19 10:55 12:38 13:52 MCHC Lymph % (Auto) Lymph # Seg Neutrophils % Seg Neutrophils # APTT D-Dimer ABG pH ABG pO2 ABG HCO3 ABG O2 Saturation ABG Base Excess Oxyhemoglobin Sodium Potassium Chloride Carbon Dioxide BUN Creatinine Glucose POC Glucose 261 H 235 H 224 H Lactic Acid Calcium Phosphorus Ferritin AST Alkaline Phosphatase Lactate Dehydrogenase Troponin T C-Reactive Protein NT-Pro-B Natriuret Pep Albumin Triglycerides LDL Cholesterol Direct HDL Cholesterol Coronavirus (PCR) 12/11/19 Unknown MCHC Lymph % (Auto) Lymph # Seg Neutrophils % Seg Neutrophils # APTT D-Dimer ABG pH ABG pO2 ABG HCO3 ABG O2 Saturation ABG Base Excess Oxyhemoglobin Sodium Potassium Chloride Carbon Dioxide BUN Creatinine Glucose POC Glucose Lactic Acid Calcium Phosphorus Ferritin AST Alkaline Phosphatase Lactate Dehydrogenase Troponin T C-Reactive Protein NT-Pro-B Natriuret Pep Albumin Triglycerides LDL Cholesterol Direct HDL Cholesterol Coronavirus (PCR) Positive A
--- NOTE | 2019-12-11 15:51 | Event Note ---
Date: 12/11/19 Patient coded again. was on PEA on monitor ACLS initiated, given 1 dose of epinephrine Patient noted to be asystole on the monitor, with dilated pupil, no pulse, no cough or gag reflex Patient was pronounced at 1534 Patient's nephew Mr. Whiting was called and notified, phone number [phone] Cause of Cardiorespiratory arrest due to severe sepsis from COVID-19 pneumonia and acute renal failure
--- NOTE | 2019-12-11 15:53 | Death Summary ---
Summary - Providers Date of service: 12/11/19 Consults: 12/10/19 14:35 Consult to Physician [CONS] Routine Comment: Consulting Provider: SIMBA HAYES Physician Instructions: Reason For Exam: vent Mx 12/11/19 09:12 Consult to Physician [CONS] Routine Comment: Consulting Provider: KAVON DUNN Physician Instructions: Reason For Exam: sepsis Consult to Physician [CONS] Routine Comment: Consulting Provider: TOMÁS GARCIA Physician Instructions: Reason For Exam: NANCI 12/11/19 09:51 Consult to Physician [CONS] Routine Comment: Consulting Provider: KIRSTEN MERCADO Physician Instructions: Reason For Exam: anoxic brain injury 12/11/19 10:12 Consult to Physician [CONS] Routine Comment: Consulting Provider: JONH ESPINOSA Physician Instructions: Reason For Exam: cardiac arrest Attending: BEBO GOODEN - summary Date of admission: 12/10/19 12:46 Significant findings: The patient is a 49-year-old female with h/o HTN, DMtype 2 presented to ER by her friend with a chief complaint of weakness. In the ED she was found to be hypoxic with O2 sat to 50% on room air in triage, was immediately brought back to the exam room where she was found to have decreased level of consciousness, subsequently the intubated. CXR showed b/l PNA with consolidation, BG was 643, lactic acid 9.6, Cr 1.0 and bicarbonate was 14. Patient was given NS bolus, placed on insulin drip, started on levophed and admitted to ICU for further evaluation and Mx. Following admission she remained hypotensive on multiple pressors, s/p cardiac arrest multiple times. Patient remained with poor circulation on maximum pressor support, persistent poor oxygenation on ventilator with 100% FiO2. Updated family by phone and at bedside. Patient coded again and was noted to be PEA on monitor. ACLS was initiated, and protocol followed. Patient noted to be asystole on the monitor with fixed dilated pupil, no pulse no cough or no gag reflex. Patient was then pronounced at 1534. Cause of Cardiorespiratory arrest due to severe sepsis from COVID-19 pneumonia and acute renal failure
[2019-12-11] MEDS ORDERED: methylPREDNISolone Sod Succinate 125 MG/2 ML INJ IV SCH (16:00)
[2019-12-11 16:15] LABS: Calcium 7.5 mg/dL (8.4-10.2)
--- NOTE | 2019-12-11 20:59 | Consultation ---
History of Present Illness - Reason for Consult Consult date: 12/11/19 acute renal failure - History of Present Illness The patient is a 49 years old female with history of Hypertension and diabetes mellitus who presented to [facility] ED 12/09 with complaint of weakness. Unable to get any history from patient at this time as pt is currently intubated and on vent. No family member was present at the time of my evaluation. In the ED she was found to be hypoxic with O2 sat around 50% on room air in triage, was immediately brought back to the exam room where she was found to have decreased level of consciousness. The patient subsequently the intubated in the ER. CXR showed b/l PNA with consolidation, BG was 643, lactic acid 9.6, Cr 1.0 and bicarbonate was 14. Patient was given NS bolus, placed on insulin drip, started on levophed and admitted to ICU for further evaluation and Mx. Since admission she coded (PEA) about 5 times. Currently she is on 4 different pressors and IV fluids. Creatinine level increased to 2.5 with bicarb 14. Nephrology was consulted for further evaluation. Past History Past Medical History: diabetes, hypertension Medications and Allergies Allergies Allergy/AdvReac Type Severity Reaction Status Date / Time No Known Allergies Allergy Verified 08/23/19 02:58 Home Medications Medication Instructions Recorded Confirmed Last Taken Type Amoxicillin/Potassium Clav 1 each PO BID #14 tablet 08/26/19 Unknown Rx [Augmentin 875-125 Tablet] Insulin NPH/Regular [NovoLIN 70/30] 15 unit SUB-Q BIDDIAB #1 vial 08/26/19 Unknown Rx polyethylene glycoL 3350 [Miralax 17 gm PO QDAY #30 powd.pack 08/26/19 Unknown Rx 3350] Active Meds: Active Medications Acetaminophen (Tylenol) 650 mg PO Q4H PRN PRN Reason: Pain, Mild (1-3) Last Admin: 12/11/19 04:24 Dose: 650 mg Documented by: Dextrose (D50w (25gm) Syringe) 0 ml IV Q30MIN PRN; Protocol PRN Reason: Hypoglycemia Heparin Sodium (Porcine) (Heparin) 5,000 unit SUB-Q Q12HR LATA Hydrophilic Ointment (Vaseline Lip Therapy) 1 applic TP Q2HR PRN PRN Reason: Dry Lips Midazolam HCl 100 mg/ Sodium (Chloride) 100 mls @ 2 mls/hr IV TITR ONE; Protocol Stop: 12/12/19 11:59 Last Titration: 12/11/19 16:39 Dose: 0 mg/hr, 0 mls/hr Documented by: Norepinephrine (Levophed Drip 4 Mg/Ns 250 Ml) 4 mg in 250 mls @ 7.5 mls/hr IV TITR LATA; Protocol Last Admin: 12/11/19 14:00 Dose: 30 mcg/min, 112.5 mls/hr Documented by: Propofol (Diprivan 10 Mg/Ml) 1,000 mg in 100 mls @ 2.19 mls/hr IV TITR LATA; Protocol Last Titration: 12/11/19 16:42 Dose: 0 mcg/kg/min, 0 mls/hr Documented by: Azithromycin 500 mg/ Sodium (Chloride) 250 mls @ 250 mls/hr IV Q24HR LATA; Protocol Last Admin: 12/11/19 12:58 Dose: 250 mls/hr Documented by: Insulin Human Regular 100 (units/ Sodium Chloride) 100 mls @ 1 mls/hr IV TITR LATA; Protocol Last Titration: 12/11/19 15:00 Dose: 4 units/hr, 4 mls/hr Documented by: Vasopressin 20 unit/ Sodium (Chloride) 101 mls @ 9.09 mls/hr IV TITR LATA; Protocol Last Admin: 12/11/19 06:23 Dose: 0.03 units/min, 9.09 mls/hr Documented by: Epinephrine 8 mg/ Sodium (Chloride) 250 mls @ 3.75 mls/hr IV TITR LATA; Protocol Last Titration: 12/11/19 09:02 Dose: 10 mcg/min, 18.75 mls/hr Documented by: Phenylephrine HCl 100 mg/ (Sodium Chloride) 100 mls @ 3 mls/hr IV TITR LATA; Protocol Last Admin: 12/11/19 13:40 Dose: 400 mcg/min, 24 mls/hr Documented by: Sodium Bicarbonate 100 meq/ (Sterile Water) 1,100 mls @ 75 mls/hr IV DIRECT LATA Last Admin: 12/11/19 11:02 Dose: 75 mls/hr Documented by: Cefepime HCl (Cefepime/Ns 2 Gm/100 Ml) 2 gm in 100 mls @ 200 mls/hr IV Q12H LATA; Protocol Fluconazole (Diflucan) 200 mg in 100 mls @ 100 mls/hr IV Q24H LATA; Protocol Metronidazole (Flagyl 500 Mg/100 Ml) 500 mg in 100 mls @ 100 mls/hr IV Q8H LATA; Protocol Methylprednisolone Sodium Succinate (Solu-Medrol) 60 mg IV Q8H LATA Midazolam HCl (Versed) 2 mg IV Q10MIN PRN PRN Reason: Sedation Multi-Ingred Cream/Lotion/Oil/Oint (Artificial Tears Ophth Oint) 1 applic OU Q4HR PRN PRN Reason: Dry Eye(s) Pantoprazole Sodium (Protonix) 40 mg IV QDAY LATA Review of Systems ROS unobtainable: due to mental status Exam - Vital Signs Vital signs: Vital Signs Pulse Resp BP Pulse Ox 138 H 26 H 150/77 56 L 12/10/19 09:44 12/10/19 09:44 12/10/19 09:44 12/10/19 09:44 - General Appearance General appearance: well-developed, well-nourished, appears stated age, intubated, other (on vent) EENT: ATNC, other (pupils are dilated and fixed) Neck: Present: trachea midline Respiratory: Other (mechanical vent sound are heard) Heart: regular, S1S2, no murmurs Gastrointestinal: Present: other (soft, De La Rosa catheter). Absent: tenderness Integumentary: no rash, warm and dry Neurologic: obtunded Musculoskeletal: Present: other (no edema) Results - Lab Results 12/10/19 Unknown 12/11/19 14:59 Most recent lab results ABG pH 7.201 pH Units (7.350-7.450) L 12/11/19 05:48 ABG pCO2 55.1 mm Hg 12/11/19 05:48 ABG pO2 66.9 mm Hg (80.0-90.0) L 12/11/19 05:48 ABG HCO3 21.1 mmol/L (20.0-26.0) 12/11/19 05:48 ABG O2 Saturation 92.1 % (95.0-99.0) L 12/11/19 05:48 Calcium 7.5 mg/dL (8.4-10.2) L 12/11/19 14:59 Phosphorus 2.40 mg/dL (2.5-4.5) L 12/10/19 15:52 Magnesium 2.20 mg/dL (1.7-2.3) 12/10/19 15:52 Assessment and Plan 1. Acute kidney injury: Vasomotor NANCI in the setting of hypotension / shock. Likely ATN. Creatinine level continue to increase. Severe hypotension and multiple episodes of cardiac arrest / PEA. Patient has de la rosa catheter. Continue current treatment. Continue IV fluids. Renal prognosis is guarded. Monitor renal function. Avoid nephrotoxic agents. Meds dosage based on GFR. 2. FEN: Hyperkalemia, K level is better. Metabolic acidosis, lactic acidosis and DKA. Monitor lytes and volume status. 3. S/P cardiac arrest, multiple episodes of PEA arrest. 4. Septic shock: Currently 4 different pressors. 5. Acute hypoxic respiratory failure: 2/2 extensive PNA. Intubated on vent. 6. Bilateral PNA: COVID-19 positive. 7. DKA. 8. Acute metabolic encephalopathy. Prognosis is poor.
[2019-12-12] MEDS ORDERED: CEFEPIME/NS 2 GM/100 ML 2 GM/100 ML BAG IV SCH
--- NOTE | 2019-12-12 12:05 | Consultation ---
This is a 49-year-old [place] female who enters [facility] after a 2-week illness related to infection. She is a diabetic, was not under direct medical care, apparently received some supportive care, although no direct medical treatment. She apparently became worse, had struggling with her breathing, 911 was called. She was noted to have a pO2 of 50. She was brought to the Emergency Room and subsequently had to be intubated. She had bilateral pneumonia, was septic and went into shock. She then was resuscitated after suffering a cardiac arrest in a series of 3, was transferred to the ICU, where she did not regain consciousness. She was on pressor agents because her blood pressure was very low. She was febrile, had bilateral consolidated pneumonia, was kept on a ventilator. Attempt was made to get a cerebral blood flow study; however, that cannot be done because her blood pressure was too unstable. I was consulted about the case. At the of point me being consulted, status of her COVID testing was not back yet, so I am not sure whether she was COVID positive or negative. I did comment that we could not do an EEG until we were sure of her COVID status. She was unresponsive, ventilatory dependent, profoundly hypoxic and septic. Prognosis at this point is quite poor from reviewing the chart, going over the EMS notes, the Emergency Room, Intensive Care Unit, Dr. Greg Carbajal note, as well as Infectious Disease. This patient has a terminal illness, a very grim prognosis, but do not see any potential for recoverability for neurological state. Unfortunately, we cannot get a CAT scan because of her unstable physical state either and I feel that her condition is terminal at this point. JOB# [id number] RADHA/CAREY
== END 2019-12-11 15:34 | DRG 871 ==
LOC: ED 09:34 → CC1 12:46
PROVIDERS: ADMIT Internal Medicine; ATTEND Internal Medicine
PROC: 0BH17EZ Insertion of Endotracheal Airway into Trachea, Via Natural or Artificial Opening (ICD-10-PCS; principal; 2019-12-10)
PROC: 5A1945Z Respiratory Ventilation, 24-96 Consecutive Hours (ICD-10-PCS; 2019-12-10)
PROC: 4A033R1 Measurement of Arterial Saturation, Peripheral, Percutaneous Approach (ICD-10-PCS; 2019-12-10)
PROC: 06HY33Z Insertion of Infusion Device into Lower Vein, Percutaneous Approach (ICD-10-PCS; 2019-12-10)
DX: A41.89 Other specified sepsis (principal); J96.01 Acute respiratory failure with hypoxia; E11.10 Type 2 diabetes mellitus with ketoacidosis without coma; R65.21 Severe sepsis with septic shock; N17.0 Acute kidney failure with tubular necrosis; G93.41 Metabolic encephalopathy; U07.1 COVID-19; J12.89 Other viral pneumonia; G93.40 Encephalopathy, unspecified; I10 Essential (primary) hypertension; I95.9 Hypotension, unspecified; E87.5 Hyperkalemia; E11.65 Type 2 diabetes mellitus with hyperglycemia; I46.9 Cardiac arrest, cause unspecified; Z82.49 Family history of ischemic heart disease and other diseases of the circulatory system; Z79.4 Long term (current) use of insulin
CPT/HCPCS: 36415; 36600; 71045; 80048; 80053; 80061; 81001; 82140; 82728; 82803; 82947; 82962; 83615; 83735; 83880; 84100; 84145; 84484; 85025; 85379; 85730; 86140; 87040; 87070; 87205; 93005; 94002; 94003; G0378; C9113; J0171; J0330; J0456; J0696; J1450; J1644; J1815; J1940; J2060; J2250; J2370; J2704; J7030; J7040; J7050; U0003-CS